=== PATIENT | female | born 1960 | race Caucasian/White ===

== ENCOUNTER 2018-12-12 13:42 | Inpatient (IN) | payer OTHER ==
[~2018-12-12] VITALS: Ht 152.4 cm; Wt 85.8 kg
[~2018-12-12 13:42] MED LIST: LANT3I SC; METF100010 PO; ROCURONIUM 50 MG INJ ONE; SEVOFLURANE 15 MIN ONE; VALS320T2 PO
[2018-12-12] MEDS ORDERED: KETOROLAC 15 MG INJ IV STA (13:58)
[2018-12-12] MEDS ORDERED: ONDANSETRON 4 MG INJ IV STA (13:58)
[2018-12-12] MEDS ORDERED: LACTATED RINGER'S 1,000 ML IV STA (13:58)
[2018-12-12] MEDS ORDERED: ATOR-2 PO (14:37)
[2018-12-12] MEDS ORDERED: LOSA100T15 PO (14:37)
[2018-12-12] MEDS ORDERED: CHOL100062 PO (14:38)
[2018-12-12] MEDS ORDERED: RANI150T5 PO (14:38)
[2018-12-12] MEDS ORDERED: INSU100I33 SC (14:39)
[2018-12-12] MEDS ORDERED: PIPER-TAZO 3.375 GM IV (PMX) 100 ML IVPB ONE (15:00)
--- NOTE | 2018-12-12 15:08 | ERD ---
ER Documentation Chief Complaint Chief Complaint generalized abdominal pain and nausea since last night HPI 58-year-old woman complaining of diffuse periumbilical abdominal pain beginning last night with nausea and fever. She states the pain got worse this morning and she ate a small amount of oatmeal about 5 hours prior to evaluation. She localizes the pain to the right lower quadrant abdomen, denies vomiting or diarrhea, no chest pain or shortness of breath, no URI symptoms, no dysuria ROS All systems reviewed and are negative except as per history of present illness. Medications Home Meds Reported Medications Insulin Glargine,Hum.rec.anlog (Basaglar Kwikpen U-100) 100 Unit/1 Ml Insuln.pen, 70 UNIT SC QHS, EA 12/12/18 Ranitidine Hcl* (Ranitidine Hcl*) 150 Mg Tablet, 150 MG PO Q12, #60 TAB 12/12/18 Cholecalciferol* (Vitamin D3*) 1,000 Unit Tablet, 1000 UNIT PO DAILY, TAB 12/12/18 Losartan Potassium* (Losartan Potassium*) 100 Mg Tablet, 100 MG PO DAILY, TAB 12/12/18 Atorvastatin* (Atorvastatin*) 80 Mg Tablet, 80 MG PO QHS, #30 TAB 12/12/18 Discontinued Reported Medications Metformin Hcl* (Metformin Hcl*) 1,000 Mg Tablet, 1000 MG PO WITH BREAKFAST, #30 TAB 11/14/15 Valsartan* (Diovan*) 320 Mg Tablet, 320 MG PO DAILY, TAB 11/14/15 Insulin Glargine* (Lantus*) 100 Unit/Ml Soln, 50 UNIT SC QHS, #1 VIAL 11/14/15 Allergies Allergies: Coded Allergies: No Known Drug Allergies (Verified Allergy, Unknown, 12/12/18) PMhx/Soc Hypertension, diabetes mellitus History of Surgery: No Anesthesia Reaction: No Hx Neurological Disorder: No Hx Respiratory Disorders: No Hx Cardiac Disorders: Yes (htn, hyperlipidemia) Hx Psychiatric Problems: No Hx Miscellaneous Medical Probl: No Hx Alcohol Use: No Hx Substance Use: No Hx Tobacco Use: No Smoking Status: Never smoker FmHx Family History: No diabetes Physical Exam Vitals Vital Signs Date Temp Pulse Resp B/P (MAP) Pulse Ox O2 O2 Flow FiO2 Time Delivery Rate 12/12/18 100.8 88 19 146/66 99 Room Air 14:15 (92) 12/12/18 100.8 107 25 131/69 99 13:44 (89) Physical Exam Const: No acute distress mild discomfort, febrile Head: Atraumatic Eyes: Normal Conjunctiva ENT: Normal External Ears, Nose and Mouth. Neck: Full range of motion. No meningismus. Resp: Clear to auscultation bilaterally Cardio: Regular rate and rhythm, no murmurs Abd: Positive McBurney's point tenderness to touch with voluntary guarding, no rigidity, no Rovsing sign Skin: No petechiae or rashes, no ecchymosis, no hematomas Back: No midline or flank tenderness Ext: No cyanosis, or edema, calves symmetrical Neur: Awake and alert x3, no focal deficits or facial asymmetry Psych: Normal Mood and Affect Result Diagram: 12/12/18 1406 12/12/18 1406 Results 24 hrs Laboratory Tests Test 12/12/18 14:06 White Blood Count 16.0 10^3/ul Red Blood Count 3.50 10^6/ul Hemoglobin 10.7 g/dl Hematocrit 31.0 % Mean Corpuscular Volume 88.6 fl Mean Corpuscular Hemoglobin 30.6 pg Mean Corpuscular Hemoglobin Concent 34.5 g/dl Red Cell Distribution Width 12.3 % Platelet Count 350 10^3/UL Mean Platelet Volume 8.5 fl Immature Granulocytes % 0.400 % Neutrophils % 86.2 % Lymphocytes % 7.3 % Monocytes % 5.9 % Eosinophils % 0.0 % Basophils % 0.2 % Nucleated Red Blood Cells % 0.0 /100WBC Immature Granulocytes # 0.070 10^3/ul Neutrophils # 13.8 10^3/ul Lymphocytes # 1.2 10^3/ul Monocytes # 1.0 10^3/ul Eosinophils # 0.0 10^3/ul Basophils # 0.0 10^3/ul Nucleated Red Blood Cells # 0.0 10^3/ul Prothrombin Time 12.2 Sec Prothrombin Time Ratio 1.0 INR International Normalized Ratio 0.89 Activated Partial Thromboplast Time 27.5 Sec Urine Color YELLOW Urine Clarity CLOUDY Urine pH 5.0 Urine Specific [place] 1.019 Urine Ketones TRACE mg/dL Urine Nitrite NEGATIVE mg/dL Urine Bilirubin NEGATIVE mg/dL Urine Urobilinogen NEGATIVE mg/dL Urine Leukocyte Esterase NEGATIVE Stephanie/ul Urine Microscopic RBC 1 /HPF Urine Microscopic WBC 3 /HPF Urine Squamous Epithelial Cells FEW /HPF Urine Bacteria FEW /HPF Urine Mucus FEW /HPF Urine Hemoglobin NEGATIVE mg/dL Urine Glucose 1+ mg/dL Urine Total Protein 3+ mg/dl Sodium Level 130 mmol/L Potassium Level 4.3 mmol/L Chloride Level 95 mmol/L Carbon Dioxide Level 23 mmol/L Anion Gap 12 Blood Urea Nitrogen 31 mg/dl Creatinine 1.73 mg/dl Est Glomerular Filtrat Rate mL/min 30 mL/min Glucose Level 174 mg/dl Calcium Level 9.3 mg/dl Total Bilirubin 1.0 mg/dl Direct Bilirubin 0.00 mg/dl Indirect Bilirubin 1.0 mg/dl Aspartate Amino Transf (AST/SGOT) 22 IU/L Alanine Aminotransferase (ALT/SGPT) 23 IU/L Alkaline Phosphatase 124 IU/L Total Protein 7.5 g/dl Albumin 4.0 g/dl Globulin 3.50 g/dl Albumin/Globulin Ratio 1.14 Lipase 26 U/L Current Medications Medications Dose Sig/Brannon Start Time Status Last (Trade) Ordered Route PRN Stop Time Admin Dose Reason Admin Lactated 1,000 ml @ Q1H STAT 12/12/18 DC 12/12/18 Ringer's 1,000 mls/hr IV 13:58 14:43 12/12/18 14:57 Ondansetron 4 mg ONCE STAT 12/12/18 DC 12/12/18 HCl (Zofran IV 13:58 14:43 Inj) 12/12/18 14:00 Ketorolac 15 mg ONCE STAT 12/12/18 DC 12/12/18 Tromethamine IV 13:58 14:43 (Toradol) 12/12/18 14:00 Piperacillin 100 ml @ ONCE ONCE 12/12/18 12/12/18 Sod/ 200 mls/hr IVPB 15:00 14:50 Tazobactam 12/12/18 15:29 Sod Procedures/MDM IV line was established patient was placed on monitoring analyst rhythm strip revealed a sinus rhythm at about 80 bpm with upright P and T waves. Patient was febrile I administered LR 1 L IV, Toradol 15 mg IV, Zofran 4 mg IV. CBC reveals a leukocytosis of 16, electrolytes revealed dehydration with a BUN/creatinine of 31/1.7, liver function test normal, coagulation profile unremarkable, urinalysis negative for infection. CT scan was positive for acute appendicitis, please refer to radiologist dictation for full report. I spoke to general surgeon title one reading teacher regarding the patient's presentation, symptomatology, CT scan findings. He agreed to take the patient to the OR. I do not suspect sepsis I administered Zosyn 3.375 g IV Patient admitted to [facility] Departure Diagnosis: Primary Impression: Acute appendicitis Acute appendicitis type: with localized peritonitis Appendicitis gangrene presence: without gangrene Appendicitis perforation presence: without perforation Appendicitis abscess presence: without abscess Qualified Codes: K35.30 - Acute appendicitis with localized peritonitis, without perforation or gangrene Condition: TERRI Arenas MD December 12, 2018 15:08
--- NOTE | 2018-12-12 15:27 | HP ---
Date/Time of Note Date/Time of Note DATE: 12/12/18 TIME: 15:27 Assessment/Plan VTE Prophylaxis Pharmacological prophylaxis: other Lines/Catheters IV Catheter Type (from Nrs): Saline Lock Assessment/Plan Hospital Course Patient is a female with a past medical history significant for diabetes mellitus, dyslipidemia, hypertension, acid reflux who presents to [facility] for abdominal pain. Patient has been suffering from intermittent abdominal pain for the past 2 days that has been waxing and waning. The pain progressively got worse and is now located primarily in the right lower quadrant. Patient states that she has had nausea however currently the nausea has subsided and her only current complaint aside from the abdominal pain is a mild to moderate headache. Patient denies chest pain, shortness of breath, dizziness, neck pain, diarrhea, constipation, leg pain. Objective Physical exam General: Patient is laying in bed and answers questions appropriately Mentation: Patient is alert and oriented 4, Head: Normocephalic atraumatic Eyes: EOMI, pupils reactive to light Neck: Supple, nontender, midline Respiratory: Clear to auscultation bilaterally Cardiovascular: regular rate, no obvious murmurs Gastrointestinal: Right lower quadrant to palpation, bowel sounds heard. Neurological: Moves all extremities spontaneously Skin: No new skin lesions Assessment and plan Acute appendicitis -Found on CT -IV fluid -N.p.o. -IV antibiotic Sepsis -Secondary to above appendicitis -Blood cultures -Lactic acid -IV fluid -IV antibiotic Diabetes mellitus -Insulin lighting scale 1 house and n.p.o. Dyslipidemia -Continue home meds when able Hypertension -Continue home meds when able, until eating continue with as needed medications Acid reflux -Protonix Disposition -Awaiting general surgeon consultation and likely surgery. Result Diagram: 12/12/18 1406 12/12/18 1406 Results 24hrs Laboratory Tests Test 12/12/18 14:06 White Blood Count 16.0 H Red Blood Count 3.50 L Hemoglobin 10.7 L Hematocrit 31.0 L Mean Corpuscular Volume 88.6 Mean Corpuscular Hemoglobin 30.6 Mean Corpuscular Hemoglobin Concent 34.5 Red Cell Distribution Width 12.3 Platelet Count 350 Mean Platelet Volume 8.5 Immature Granulocytes % 0.400 Neutrophils % 86.2 H Lymphocytes % 7.3 L Monocytes % 5.9 Eosinophils % 0.0 Basophils % 0.2 Nucleated Red Blood Cells % 0.0 Immature Granulocytes # 0.070 H Neutrophils # 13.8 H Lymphocytes # 1.2 Monocytes # 1.0 H Eosinophils # 0.0 Basophils # 0.0 Nucleated Red Blood Cells # 0.0 Prothrombin Time 12.2 Prothrombin Time Ratio 1.0 INR International Normalized Ratio 0.89 Activated Partial Thromboplast Time 27.5 Urine Color YELLOW Urine Clarity CLOUDY A Urine pH 5.0 Urine Specific [place] 1.019 Urine Ketones TRACE A Urine Nitrite NEGATIVE Urine Bilirubin NEGATIVE Urine Urobilinogen NEGATIVE Urine Leukocyte Esterase NEGATIVE Urine Microscopic RBC 1 Urine Microscopic WBC 3 Urine Squamous Epithelial Cells FEW Urine Bacteria FEW A Urine Mucus FEW A Urine Hemoglobin NEGATIVE Urine Glucose 1+ H Urine Total Protein 3+ H Sodium Level 130 L Potassium Level 4.3 Chloride Level 95 L Carbon Dioxide Level 23 Anion Gap 12 Blood Urea Nitrogen 31 H Creatinine 1.73 H Est Glomerular Filtrat Rate mL/min 30 L Glucose Level 174 Calcium Level 9.3 Total Bilirubin 1.0 Direct Bilirubin 0.00 Indirect Bilirubin 1.0 Aspartate Amino Transf (AST/SGOT) 22 Alanine Aminotransferase (ALT/SGPT) 23 Alkaline Phosphatase 124 H Total Protein 7.5 Albumin 4.0 Globulin 3.50 H Albumin/Globulin Ratio 1.14 Lipase 26 HPI/ROS Admit Date/Time Admit Date/Time PMH/Family/Social Past Medical History Medications Current Medications Piperacillin Sod/ Tazobactam Sod 100 ml @ 200 mls/hr ONCE ONCE IVPB Last administered on 12/12/18at 14:50; Admin Dose 200 MLS/HR; Start 12/12/18 at 15:00; Stop 12/12/18 at 15:29 Coded Allergies: No Known Drug Allergies (Verified Allergy, Unknown, 12/12/18) Social History Smoking Status: Never smoker Exam/Review of Systems Vital Signs Vitals Vital Signs Date Temp Pulse Resp B/P (MAP) Pulse Ox O2 O2 Flow FiO2 Time Delivery Rate 12/12/18 100.8 88 19 146/66 99 Room Air 14:15 (92) TERRI SESAY December 12, 2018 15:27
[2018-12-12] MEDS ORDERED: ACETAMINOPHEN 650 MG SUPP PR PRN (15:30)
[2018-12-12] MEDS ORDERED: HYDROCODONE/APAP (5/325) TAB PO PRN (15:30)
[2018-12-12] MEDS ORDERED: hydrALAzine 20 MG INJ IV PRN (15:30)
[2018-12-12] MEDS ORDERED: NACL 0.9% 3 ML SYG IV SCH (15:30)
[2018-12-12] MEDS ORDERED: ACETAMINOPHEN 1000MG/100ML IV 100 ML IVPB PRN (15:30)
--- NOTE | 2018-12-12 15:41 | CONS ---
Assessment/Plan Assessment/Plan Assessment/Plan (Daily) 1. acute kidney injury due to Severe preneal azotemia due to decreased PO intake 2. Acute appendicitis 3. acute abdominal pain 3. H/O HTN 4. H/o HL 5. H/o DM II Plan: IVF D51/2 NS at 100 ml/hr IV abx zosyn for acute appendicitis pain control Kidneys unremarkabel on CT abdomen + pelvis Expecting Cr to improve with IVF hydration THanks for consultation. I will continue to follow up Consultation Date/Type/Reason Admit Date/Time 12/12/18 Date of Consultation: December 12, 2018 Type of Consult NEPHROLOGY Reason for Consultation acute kidney injury, Hyponatremia Requesting Provider: TERRI SESAY Date/Time of Note DATE: 12/12/18 TIME: 15:40 Hx of Present Illness 58 y/o female with a past medical history significant for diabetes mellitus, dyslipidemia, hypertension, acid reflux who presents to [facility] for abdominal pain. Patient has been suffering from intermittent abdominal pain for the past 2 days that has been waxing and waning. pt has not been eating for last two days, On admission BUN/Cr 31/1.73, Na 130. renal has been consulted for Hyponatremia, acute Kidney injury on CKD III Constitutional: poor po Eyes: no complaints ENT: no complaints Respiratory: pleuritic pain, shortness of breath Cardiovascular: no complaints Gastrointestinal: pain, nausea, vomiting Genitourinary: no complaints Musculoskeletal: no complaints Skin: no complaints Neurologic: no complaints Endocrine: no complaints Lymphatic: no complaints Psychological: no complaints Immunologic: no complaints Past Medical History Medical History: diabetes, high cholesterol, hypertension Home Meds Reported Medications Insulin Glargine,Hum.rec.anlog (Basaglar Kwikpen U-100) 100 Unit/1 Ml Insuln.pen, 70 UNIT SC QHS, EA 12/12/18 Ranitidine Hcl* (Ranitidine Hcl*) 150 Mg Tablet, 150 MG PO Q12, #60 TAB 12/12/18 Cholecalciferol* (Vitamin D3*) 1,000 Unit Tablet, 1000 UNIT PO DAILY, TAB 12/12/18 Losartan Potassium* (Losartan Potassium*) 100 Mg Tablet, 100 MG PO DAILY, TAB 12/12/18 Atorvastatin* (Atorvastatin*) 80 Mg Tablet, 80 MG PO QHS, #30 TAB 12/12/18 Discontinued Reported Medications Metformin Hcl* (Metformin Hcl*) 1,000 Mg Tablet, 1000 MG PO WITH BREAKFAST, #30 TAB 11/14/15 Valsartan* (Diovan*) 320 Mg Tablet, 320 MG PO DAILY, TAB 11/14/15 Insulin Glargine* (Lantus*) 100 Unit/Ml Soln, 50 UNIT SC QHS, #1 VIAL 11/14/15 Medications Current Medications Sodium Chloride 1,000 ml @ 100 mls/hr Q10H IV ; Start 12/12/18 at 15:08; Status UNV IV Flush (NS 3 ml) 3 ml PER PROTOCOL IV ; Start 12/12/18 at 15:30; Status UNV Ondansetron HCl (Zofran Inj) 4 mg Q6H PRN IV NAUSEA/VOMITING; Start 12/12/18 at 15:30; Status UNV Acetaminophen/ Hydrocodone Bitart (Berino (5/325)) 1 tab Q6H PRN PO .PAIN 4-6; Start 12/12/18 at 15:30; Status UNV Morphine Sulfate (morphine) 2 mg Q4H PRN IV .PAIN 7-10; Start 12/12/18 at 15:30; Status UNV Pantoprazole (Protonix Iv) 40 mg DAILY@06 IV ; Start 12/13/18 at 06:00; Status UNV Miscellaneous Information (* Miscellaneous Pharmacy Order) Discontinue current oral sulfonylur... ONCE ONCE XX ; Start 12/12/18 at 15:30; Stop 12/12/18 at 15:31; Status UNV Diagnostic Test (Pha) (Accu-Chek) 1 XX ; Start 12/13/18 at 02:00; Status UNV Miscellaneous Information (* Miscellaneous Pharmacy Order) HYPOGLYCEMIA PROTOCOL w... ONCE ONCE XX ; Start 12/12/18 at 15:30; Stop 12/12/18 at 15:31; Status UNV Insulin Aspart (Novolog Insulin Pen) NOVOLOG *MILD* ALGORITHM Q6 SC ; Start 12/12/18 at 18:00; Status UNV Miscellaneous Information (* Miscellaneous Pharmacy Order) Discontinue all previ... ONCE ONCE XX ; Start 12/12/18 at 15:30; Stop 12/12/18 at 15:31; Status UNV Acetaminophen 100 ml @ 400 mls/hr Q6H PRN IVPB fever and pain; Start 12/12/18 at 15:30; Stop 12/13/18 at 15:29; Status UNV Hydralazine HCl (Apresoline) 10 mg Q4H PRN IV sbp >160; Start 12/12/18 at 15:30; Status UNV Allergies: Coded Allergies: No Known Drug Allergies (Verified Allergy, Unknown, 12/12/18) Past Surgical History Past Surgical Hx: no surgical history Family History Significant Family History: no pertinent family hx Social History Alcohol Use: none Smoking Status: Never smoker Drug Use: none Exam/Review of Systems Exam Vitals Vital Signs Date Temp Pulse Resp B/P (MAP) Pulse Ox O2 O2 Flow FiO2 Time Delivery Rate 12/12/18 100.8 88 19 146/66 99 Room Air 14:15 (92) Constitutional: alert Psych: no complaints Head: normocephalic Eyes: nl conjunctiva ENMT: nl external ears & nose Neck: supple, non-tender Respiratory: clear to auscultation, normal air movement, diminished breath sounds Cardiovascular: regular rate and rhythm, nl pulses Gastrointestinal: soft Genitourinary - Female: nl adnexae Musculoskeletal: nl extremities to inspection Extremities: normal pulses Neurological: SECURITY INSPECTOR II-XII intact Results Result Diagram: 12/12/18 1406 12/12/18 1406 Results 24hrs Laboratory Tests Test 12/12/18 14:06 White Blood Count 16.0 H Red Blood Count 3.50 L Hemoglobin 10.7 L Hematocrit 31.0 L Mean Corpuscular Volume 88.6 Mean Corpuscular Hemoglobin 30.6 Mean Corpuscular Hemoglobin Concent 34.5 Red Cell Distribution Width 12.3 Platelet Count 350 Mean Platelet Volume 8.5 Immature Granulocytes % 0.400 Neutrophils % 86.2 H Lymphocytes % 7.3 L Monocytes % 5.9 Eosinophils % 0.0 Basophils % 0.2 Nucleated Red Blood Cells % 0.0 Immature Granulocytes # 0.070 H Neutrophils # 13.8 H Lymphocytes # 1.2 Monocytes # 1.0 H Eosinophils # 0.0 Basophils # 0.0 Nucleated Red Blood Cells # 0.0 Prothrombin Time 12.2 Prothrombin Time Ratio 1.0 INR International Normalized Ratio 0.89 Activated Partial Thromboplast Time 27.5 Urine Color YELLOW Urine Clarity CLOUDY A Urine pH 5.0 Urine Specific [place] 1.019 Urine Ketones TRACE A Urine Nitrite NEGATIVE Urine Bilirubin NEGATIVE Urine Urobilinogen NEGATIVE Urine Leukocyte Esterase NEGATIVE Urine Microscopic RBC 1 Urine Microscopic WBC 3 Urine Squamous Epithelial Cells FEW Urine Bacteria FEW A Urine Mucus FEW A Urine Hemoglobin NEGATIVE Urine Glucose 1+ H Urine Total Protein 3+ H Sodium Level 130 L Potassium Level 4.3 Chloride Level 95 L Carbon Dioxide Level 23 Anion Gap 12 Blood Urea Nitrogen 31 H Creatinine 1.73 H Est Glomerular Filtrat Rate mL/min 30 L Glucose Level 174 Calcium Level 9.3 Total Bilirubin 1.0 Direct Bilirubin 0.00 Indirect Bilirubin 1.0 Aspartate Amino Transf (AST/SGOT) 22 Alanine Aminotransferase (ALT/SGPT) 23 Alkaline Phosphatase 124 H Total Protein 7.5 Albumin 4.0 Globulin 3.50 H Albumin/Globulin Ratio 1.14 Lipase 26 Medications Medication Current Medications Sodium Chloride 1,000 ml @ 100 mls/hr Q10H IV ; Start 12/12/18 at 15:08; Status UNV IV Flush (NS 3 ml) 3 ml PER PROTOCOL IV ; Start 12/12/18 at 15:30; Status UNV Ondansetron HCl (Zofran Inj) 4 mg Q6H PRN IV NAUSEA/VOMITING; Start 12/12/18 at 15:30; Status UNV Acetaminophen/ Hydrocodone Bitart (Berino (5/325)) 1 tab Q6H PRN PO .PAIN 4-6; Start 12/12/18 at 15:30; Status UNV Morphine Sulfate (morphine) 2 mg Q4H PRN IV .PAIN 7-10; Start 12/12/18 at 15:30; Status UNV Pantoprazole (Protonix Iv) 40 mg DAILY@06 IV ; Start 12/13/18 at 06:00; Status UNV Miscellaneous Information (* Miscellaneous Pharmacy Order) Discontinue current oral sulfonylur... ONCE ONCE XX ; Start 12/12/18 at 15:30; Stop 12/12/18 at 15:31; Status UNV Diagnostic Test (Pha) (Accu-Chek) 1 ea XX ; Start 12/13/18 at 02:00; Status UNV Miscellaneous Information (* Miscellaneous Pharmacy Order) HYPOGLYCEMIA PROTOCOL w... ONCE ONCE XX ; Start 5/10/19 at 15:30; Stop 12/12/18 at 15:31; Status UNV Insulin Aspart (Novolog Insulin Pen) NOVOLOG *MILD* ALGORITHM Q6 SC ; Start 12/12/18 at 18:00; Status UNV Miscellaneous Information (* Miscellaneous Pharmacy Order) Discontinue all previ... ONCE ONCE XX ; Start 12/12/18 at 15:30; Stop 12/12/18 at 15:31; Status UNV Acetaminophen 100 ml @ 400 mls/hr Q6H PRN IVPB fever and pain; Start 12/12/18 at 15:30; Stop 12/13/18 at 15:29; Status UNV Hydralazine HCl (Apresoline) 10 mg Q4H PRN IV sbp >160; Start 12/12/18 at 15:30; Status UNV DANE GREEN MD December 12, 2018 15:41
[2018-12-12 16:07] VITALS: Ht 152.4 cm; Wt 85.8 kg
--- NOTE | 2018-12-12 16:49 | CONS ---
Assessment/Plan Assessment/Plan Hospital Course (Demo Recall) 1. Acute appendicitis: CT: subcecal appendix that is distended up to 1.1 cm in diameter, moderate periappendiceal fat stranding without appendicolith, abscess or free air: had lengthy conversation with patient and daughter regarding surgical options. At this point, she has decided on conservative management without surgical intervention -IV abx -close monitoring> if unimproved or worsens may require surgical intervention -pain mgt -ivf -ok for diet 2. Abdominal pain: -pain mgt -as above 3. Leukocytosis: -as above -trend 4. Normocytic normochromic anemia: -monitor -transfuse as needed 5.Hyponatremia: Judicious fluid correction 6. GIL: -Limit nephrotoxic meds -Renally dose meds -Per renal 7. Minimally elevated alkaline phosphatase: CT: Liver, gallbladder and bile ducts unremarkable -Trend 8. Severe obesity BMI: 37 -diet and exercise optimization -encourage weight loss Thank you. Patient seen and examined in collaboration with Dr. Mehrdad Collins. Consultation Date/Type/Reason Admit Date/Time 12/12/18 Date of Consultation: December 12, 2018 Type of Consult Surgical Reason for Consultation Abdominal pain, appendicitis Date/Time of Note DATE: 12/12/18 TIME: 16:40 Hx of Present Illness Alicia Sol is a 58-year-old woman with past medical history of diabetes, dyslipidemia, hypertension, acid reflux disease, obesity who presents to the hospital for complaints of abdominal pain. Abdominal pain initially began in the left lower quadrant and has since migrated to the right lower quadrant. Pain has been present intermittently for the past 2 days but today has significantly worsened. Associated symptoms include nausea without vomiting, fevers and chills. She denies congested cough, chest pain, palpitations, abdominal trauma, vaginal discharge, change in bowel or bladder habits, diarrhea, dysuria, skin changes or rash. Laboratory findings significant for leukocytosis. CT of the abdomen shows sub-cecal appendix that is distended up to 1.1 cm in diameter, moderate periappendiceal fat stranding without appendicolith, abscess or free air. General surgery was asked to evaluate. 12 point review of systems was performed and is negative except as stated in HPI. Past Medical History as above Home Meds Reported Medications Insulin Glargine,Hum.rec.anlog (Basaglar Kwikpen U-100) 100 Unit/1 Ml Insuln.pen, 70 UNIT SC QHS, EA 12/12/18 Ranitidine Hcl* (Ranitidine Hcl*) 150 Mg Tablet, 150 MG PO Q12, #60 TAB 12/12/18 Cholecalciferol* (Vitamin D3*) 1,000 Unit Tablet, 1000 UNIT PO DAILY, TAB 12/12/18 Losartan Potassium* (Losartan Potassium*) 100 Mg Tablet, 100 MG PO DAILY, TAB 12/12/18 Atorvastatin* (Atorvastatin*) 80 Mg Tablet, 80 MG PO QHS, #30 TAB 12/12/18 Discontinued Reported Medications Metformin Hcl* (Metformin Hcl*) 1,000 Mg Tablet, 1000 MG PO WITH BREAKFAST, #30 TAB 11/14/15 Valsartan* (Diovan*) 320 Mg Tablet, 320 MG PO DAILY, TAB 11/14/15 Insulin Glargine* (Lantus*) 100 Unit/Ml Soln, 50 UNIT SC QHS, #1 VIAL 11/14/15 Medications Current Medications Sodium Chloride 1,000 ml @ 100 mls/hr Q10H IV ; Start 12/12/18 at 15:08 IV Flush (NS 3 ml) 3 ml PER PROTOCOL IV ; Start 12/12/18 at 15:30 Ondansetron HCl (Zofran Inj) 4 mg Q6H PRN IV NAUSEA/VOMITING; Start 12/12/18 at 15:30 Acetaminophen/ Hydrocodone Bitart ([place] (5/325)) 1 tab Q6H PRN PO .PAIN 4-6; Start 12/12/18 at 15:30 Morphine Sulfate (morphine) 2 mg Q4H PRN IV .PAIN 7-10; Start 12/12/18 at 15:30 Famotidine (Pepcid Iv) 20 mg DAILY IV ; Start 12/12/18 at 17:00 Acetaminophen 100 ml @ 400 mls/hr Q6H PRN IVPB fever and pain; Start 12/12/18 at 15:30; Stop 12/13/18 at 15:29 Hydralazine HCl (Apresoline) 10 mg Q4H PRN IV sbp >160; Start 12/12/18 at 15:30 Insulin Aspart (Novolog Insulin Pen) (Adult SC Insulin - Mild Algorithm)... Q6 SC ; Start 12/12/18 at 18:00 Miscellaneous Information 1 ea NOTE XX ; Start 12/12/18 at 17:00 Glucose (Glutose) 15 gm Q15M PRN PO DECREASED GLUCOSE; Start 12/12/18 at 17:00 Glucose (Glutose) 22.5 gm Q15M PRN PO DECREASED GLUCOSE; Start 12/12/18 at 17:00 Dextrose (D50w Syringe) 25 ml Q15M PRN IV DECREASED GLUCOSE; Start 12/12/18 at 17:00 Dextrose (D50w Syringe) 50 ml Q15M PRN IV DECREASED GLUCOSE; Start 12/12/18 at 17:00 Glucagon (Glucagen) 1 mg Q15M PRN IM DECREASED GLUCOSE; Start 12/12/18 at 17:00 Glucose (Glutose) 15 gm Q15M PRN BUCCAL DECREASED GLUCOSE; Start 12/12/18 at 17:00 Allergies: Coded Allergies: No Known Drug Allergies (Verified Allergy, Unknown, 12/12/18) Past Surgical History Past Surgical Hx: no surgical history Family History Significant Family History: no pertinent family hx Social History Alcohol Use: none Smoking Status: Never smoker Drug Use: none Exam/Review of Systems Exam Vitals Vital Signs Date Temp Pulse Resp B/P (MAP) Pulse Ox O2 O2 Flow FiO2 Time Delivery Rate 12/12/18 100.8 88 19 146/66 99 Room Air 14:15 (92) Constitutional: alert, oriented Psych: anxiety (min) Eyes: nl conjunctiva, nl lids ENMT: nl external ears & nose, nl lips & teeth, mucosa pink and moist Neck: supple, non-tender; No jvd Respiratory: normal air movement; No congested cough Cardiovascular: regular rate and rhythm; No edema Gastrointestinal: soft, tender (diffuse, most tender RLQ) Genitourinary - Female: nl external genitalia Musculoskeletal: nl extremities to inspection, nl gait and stance Extremities: normal pulses Neurological: nl mental status, nl speech, nl strength Skin: No rash or lesions Lymph: nl lymph nodes Results Result Diagram: 12/12/18 1406 12/12/18 1406 Results 24hrs Laboratory Tests Test 12/12/18 14:06 12/12/18 15:34 White Blood Count 16.0 H Red Blood Count 3.50 L Hemoglobin 10.7 L Hematocrit 31.0 L Mean Corpuscular Volume 88.6 Mean Corpuscular Hemoglobin 30.6 Mean Corpuscular Hemoglobin Concent 34.5 Red Cell Distribution Width 12.3 Platelet Count 350 Mean Platelet Volume 8.5 Immature Granulocytes % 0.400 Neutrophils % 86.2 H Lymphocytes % 7.3 L Monocytes % 5.9 Eosinophils % 0.0 Basophils % 0.2 Nucleated Red Blood Cells % 0.0 Immature Granulocytes # 0.070 H Neutrophils # 13.8 H Lymphocytes # 1.2 Monocytes # 1.0 H Eosinophils # 0.0 Basophils # 0.0 Nucleated Red Blood Cells # 0.0 Prothrombin Time 12.2 Prothrombin Time Ratio 1.0 INR International Normalized Ratio 0.89 Activated Partial Thromboplast Time 27.5 Urine Color YELLOW Urine Clarity CLOUDY A Urine pH 5.0 Urine Specific [place] 1.019 Urine Ketones TRACE A Urine Nitrite NEGATIVE Urine Bilirubin NEGATIVE Urine Urobilinogen NEGATIVE Urine Leukocyte Esterase NEGATIVE Urine Microscopic RBC 1 Urine Microscopic WBC 3 Urine Squamous Epithelial Cells FEW Urine Bacteria FEW A Urine Mucus FEW A Urine Hemoglobin NEGATIVE Urine Glucose 1+ H Urine Total Protein 3+ H Sodium Level 130 L Potassium Level 4.3 Chloride Level 95 L Carbon Dioxide Level 23 Anion Gap 12 Blood Urea Nitrogen 31 H Creatinine 1.73 H Est Glomerular Filtrat Rate mL/min 30 L Glucose Level 174 Calcium Level 9.3 Total Bilirubin 1.0 Direct Bilirubin 0.00 Indirect Bilirubin 1.0 Aspartate Amino Transf (AST/SGOT) 22 Alanine Aminotransferase (ALT/SGPT) 23 Alkaline Phosphatase 124 H Total Protein 7.5 Albumin 4.0 Globulin 3.50 H Albumin/Globulin Ratio 1.14 Lipase 26 Lactic Acid Level 1.1 Medications Medication Current Medications Sodium Chloride 1,000 ml @ 100 mls/hr Q10H IV ; Start 12/12/18 at 15:08 IV Flush (NS 3 ml) 3 ml PER PROTOCOL IV ; Start 12/12/18 at 15:30 Ondansetron HCl (Zofran Inj) 4 mg Q6H PRN IV NAUSEA/VOMITING; Start 12/12/18 at 15:30 Acetaminophen/ Hydrocodone Bitart ([place] (5/325)) 1 tab Q6H PRN PO .PAIN 4-6; Start 12/12/18 at 15:30 Morphine Sulfate (morphine) 2 mg Q4H PRN IV .PAIN 7-10; Start 12/12/18 at 15:30 Famotidine (Pepcid Iv) 20 mg DAILY IV ; Start 12/12/18 at 17:00 Acetaminophen 100 ml @ 400 mls/hr Q6H PRN IVPB fever and pain; Start 12/12/18 at 15:30; Stop 12/13/18 at 15:29 Hydralazine HCl (Apresoline) 10 mg Q4H PRN IV sbp >160; Start 12/12/18 at 15:30 Insulin Aspart (Novolog Insulin Pen) (Adult SC Insulin - Mild Algorithm)... Q6 SC ; Start 12/12/18 at 18:00 Miscellaneous Information 1 ea NOTE XX ; Start 12/12/18 at 17:00 Glucose (Glutose) 15 gm Q15M PRN PO DECREASED GLUCOSE; Start 12/12/18 at 17:00 Glucose (Glutose) 22.5 gm Q15M PRN PO DECREASED GLUCOSE; Start 12/12/18 at 17:00 Dextrose (D50w Syringe) 25 ml Q15M PRN IV DECREASED GLUCOSE; Start 12/12/18 at 17:00 Dextrose (D50w Syringe) 50 ml Q15M PRN IV DECREASED GLUCOSE; Start 12/12/18 at 17:00 Glucagon (Glucagen) 1 mg Q15M PRN IM DECREASED GLUCOSE; Start 12/12/18 at 17:00 Glucose (Glutose) 15 gm Q15M PRN BUCCAL DECREASED GLUCOSE; Start 12/12/18 at 17:00 MATTHEW GALLEGOS NP December 12, 2018 16:49
[2018-12-12 16:50] VITALS: BP 136/75; PULSE 78
[2018-12-12] MEDS ORDERED: GLUCAGON 1 MG INJ IM PRN (17:00)
[2018-12-12] MEDS ORDERED: GLUCOSE GEL 15 GRAM TUBE PO PRN ×2 (17:00)
[2018-12-12] MEDS ORDERED: GLUCOSE GEL 15 GRAM TUBE BUCCAL PRN (17:00)
[2018-12-12] MEDS ORDERED: DEXTROSE 50% 50 ML SYRINGE IV PRN ×2 (17:00)
[2018-12-12] MEDS: SOD CHLORIDE 0.9% 1,000 ML IV SCH (17:00)
[2018-12-12] MEDS: FAMOTIDINE 20 MG INJ IV SCH (17:20)
[2018-12-12] MEDS: Insulin NOVOLOG SS MILD Algorithm (NPO/TPN/ENTERAL FEEDS) SC SCH (17:52)
[2018-12-12] MEDS ORDERED: INSULIN ASPART [NOVOLOG] 3 ML PEN SC SCH (18:00)
[2018-12-12 20:00] VITALS: BP 100/49; PULSE 79; RESP 18
[2018-12-12] MEDS: ONDANSETRON 4 MG INJ IV PRN (21:47)
[2018-12-13] MEDS: morphine 2 MG INJ IV PRN (00:43)
[2018-12-13] MEDS: SOD CHLORIDE 0.9% 1,000 ML IV SCH ×3 (01:08→14:22)
[2018-12-13 02:00] VITALS: BP 130/62; PULSE 80; RESP 18
[2018-12-13] MEDS ORDERED: ACCU-CHEK XX SCH (02:00)
[2018-12-13] MEDS: ONDANSETRON 4 MG INJ IV PRN ×2 (03:25→14:31)
[2018-12-13] MEDS: Insulin NOVOLOG SS MILD Algorithm (NPO/TPN/ENTERAL FEEDS) SC SCH ×4 (05:37→17:05)
[2018-12-13 08:07] VITALS: BP 119/56; PULSE 85; RESP 18
[2018-12-13] MEDS: FAMOTIDINE 20 MG INJ IV SCH (08:57)
[2018-12-13] MEDS: PIPER-TAZO 2.25 GM (PMX) 50 ML IVPB SCH ×3 (10:48→18:07)
--- NOTE | 2018-12-13 12:00 | CONS ---
DATE OF ADMISSION: 12/12/2018 DATE OF CONSULTATION: 12/13/2018 TYPE OF CONSULTATION: Infectious disease. REASON FOR CONSULTATION: Antibiotic management. HISTORY OF PRESENT ILLNESS: Alicia Livingston is a 58-year-old who comes in with generalize d abdominal pain and nausea and is being seen for antibiotic management. The patient complained of d iffuse periumbilical abdominal pain the night prior to admission. She states the pain got worse on t he morning of the . The pain was in the right lower quadrant and was when she presented. PAST PROBLEMS INCLUDE: 1. Hypertension. 2. Diabetes mellitus. 3. Hyperlipidemia. FAMILY HISTORY: Noncontributory. SOCIAL HISTORY: She does not smoke, drink or abuse drugs. ALLERGIES: None to penicillin, sulfa or foods. MEDICATIONS: Per chart. REVIEW OF SYSTEMS: Noncontributory. ANCILLARY LABORATORY DATA: White count of 16,000, H and H of 10.7 and 31, platelet count 350,000. B UN and creatinine 31/1.73, glucose 174. Her examination showed a positive McBurney's point tendernes s to touch, and feeling was that she had appendicitis. She was placed on Zosyn. As noted, her CBC, she had a leukocytosis of 16,000 with 86% neutrophils. She had acute appendicitis with localized per itonitis, without gangrene, without perforation. CT scan of the abdomen and pelvis showed acute appe ndicitis. Chest x-ray: Mild left basilar atelectasis. She was seen by surgery, diagnoses of acute appendicitis was made, close monitoring. If unimproved or worsens, may require surgical intervention . Patient also is on insulin. PHYSICAL EXAMINATION: GENERAL: She is alert, responsive, anxious, in no acute distress. VITAL SIGNS: T-max 100.8. SKIN: Without generalized rash. HEENT: Within normal limits. NECK: Supple. LYMPH NODES: None palpable. CHEST: Decreased breath sounds at the bases. HEART: Without murmur or gallop. ABDOMEN: Soft, diffusely tender mostly in the right lower quadrant. EXTREMITIES: Without cyanosis, clubbing, or edema. RECTAL AND GENITAL: Deferred. NEUROLOGIC: No focal neurological abnormalities. IMPRESSION AND PLAN: The patient has appendicitis. She is I believe a candidate for laparoscopic ch olecystectomy, currently on Zosyn. She was seen by Dr. Collins's nurse practitioner. I feel that s he will probably require surgery, possibly today. Following the surgery, she can be placed on Cipro and Flagyl and be treated after she is stable as an outpatient. Dictated By: CARLY BADILLO MD, JD/NTS Conf#: [id number] DID#: [id number] CC: TERRI SESAY MD;*EndCC*
--- NOTE | 2018-12-13 13:20 | CONS ---
Assessment/Plan Assessment/Plan Assessment/Plan (Daily) 1. acute kidney injury due to Severe preneal azotemia due to decreased PO intake 2. Acute appendicitis 3. acute abdominal pain 3. H/O HTN 4. H/o HL 5. H/o DM II Plan: IVF D51/2 NS at 100 ml/hr, BUN/Cr 29/1.83, Na 131, K normal, IV abx zosyn for acute appendicitis Kidneys unremarkabel on CT abdomen + pelvis Expecting Cr to improve with IVF hydration will follow up Consultation Date/Type/Reason Admit Date/Time December 12, 2018 at 14:45 Initial Consult Date 12/12/18 Type of Consult NEPHROLOGY Requesting Provider: TERRI SESAY Date/Time of Note DATE: 12/13/18 TIME: 13:20 Exam/Review of Systems Exam Vitals Vital Signs Date Temp Pulse Resp B/P (MAP) Pulse Ox O2 O2 Flow FiO2 Time Delivery Rate 12/13/18 99.3 85 18 119/56 97 08:07 (77) 12/12/18 Room Air 16:50 Intake and Output 12/12/18 12/12/18 12/13/18 1515:00 23:00 07:00 IntakeIntake Total 300 ml BalanceBalance 300 ml Exam Constitutional: alert, awake, no acute distress Respiratory: clear to auscultation, normal air movement, diminished breath sounds Cardiovascular: regular rate and rhythm, nl pulses Gastrointestinal: soft Genitourinary - Female: nl adnexae Musculoskeletal: nl extremities to inspection Extremities: normal pulses Neurological: HYDRAULIC ELEVATOR CONSTRUCTOR II-XII intact Results Result Diagram: 12/13/18 0536 12/13/18 0536 Results 24hrs Laboratory Tests Test 12/12/18 14:06 12/12/18 15:34 12/12/18 17:22 12/13/18 00:37 White Blood Count 16.0 H Red Blood Count 3.50 L Hemoglobin 10.7 L Hematocrit 31.0 L Mean Corpuscular 88.6 Volume Mean Corpuscular 30.6 Hemoglobin Mean Corpuscular 34.5 Hemoglobin Concent Red Cell 12.3 Distribution Width Platelet Count 350 Mean Platelet Volume 8.5 Immature 0.400 Granulocytes % Neutrophils % 86.2 H Lymphocytes % 7.3 L Monocytes % 5.9 Eosinophils % 0.0 Basophils % 0.2 Nucleated Red Blood 0.0 Cells % Immature 0.070 H Granulocytes # Neutrophils # 13.8 H Lymphocytes # 1.2 Monocytes # 1.0 H Eosinophils # 0.0 Basophils # 0.0 Nucleated Red Blood 0.0 Cells # Prothrombin Time 12.2 Prothrombin Time 1.0 Ratio INR International 0.89 Normalized Ratio Activated 27.5 Partial Thromboplast Time Urine Color YELLOW Urine Clarity CLOUDY A Urine pH 5.0 Urine Specific 1.019 [place] Urine Ketones TRACE A Urine Nitrite NEGATIVE Urine Bilirubin NEGATIVE Urine Urobilinogen NEGATIVE Urine Leukocyte NEGATIVE Esterase Urine Microscopic 1 RBC Urine Microscopic 3 WBC Urine Squamous FEW Epithelial Cells Urine Bacteria FEW A Urine Mucus FEW A Urine Hemoglobin NEGATIVE Urine Glucose 1+ H Urine Total Protein 3+ H Sodium Level 130 L Potassium Level 4.3 Chloride Level 95 L Carbon Dioxide Level 23 Anion Gap 12 Blood Urea Nitrogen 31 H Creatinine 1.73 H Est Glomerular 30 L Filtrat Rate mL/min Glucose Level 174 Calcium Level 9.3 Total Bilirubin 1.0 Direct Bilirubin 0.00 Indirect Bilirubin 1.0 Aspartate Amino 22 Transf (AST/SGOT) Alanine 23 Aminotransferase (AL T/SGPT) Alkaline Phosphatase 124 H Total Protein 7.5 Albumin 4.0 Globulin 3.50 H Albumin/Globulin 1.14 Ratio Lipase 26 Lactic Acid Level 1.1 Bedside Glucose 176 97 Test 12/13/18 05:35 12/13/18 05:36 12/13/18 11:44 Bedside Glucose 103 84 White Blood Count 18.3 H Red Blood Count 3.09 L Hemoglobin 9.5 L Hematocrit 27.9 L Mean Corpuscular 90.3 Volume Mean Corpuscular 30.7 Hemoglobin Mean Corpuscular 34.1 Hemoglobin Concent Red Cell 12.6 Distribution Width Platelet Count 291 Mean Platelet Volume 8.9 Immature 1.000 H Granulocytes % Neutrophils % 87.5 H Lymphocytes % 5.6 L Monocytes % 5.7 Eosinophils % 0.0 Basophils % 0.2 Nucleated Red Blood 0.0 Cells % Immature 0.190 H Granulocytes # Neutrophils # 16.0 H Lymphocytes # 1.0 Monocytes # 1.1 H Eosinophils # 0.0 Basophils # 0.0 Nucleated Red Blood 0.0 Cells # Sodium Level 131 L Potassium Level 4.7 Chloride Level 102 Carbon Dioxide Level 22 Anion Gap 7 Blood Urea Nitrogen 29 H Creatinine 1.83 H Est Glomerular 28 L Filtrat Rate mL/min Glucose Level 94 # Hemoglobin A1c 8.9 H Calcium Level 8.7 Magnesium Level 1.9 Total Bilirubin 0.8 Direct Bilirubin 0.00 Indirect Bilirubin 0.8 Aspartate Amino 18 Transf (AST/SGOT) Alanine 21 Aminotransferase (AL T/SGPT) Alkaline Phosphatase 76 Total Protein 5.5 #L Albumin 2.8 #L Globulin 2.70 Albumin/Globulin 1.03 Ratio Triglycerides Level 123 Cholesterol Level 182 LDL Cholesterol, 112 Calculated HDL Cholesterol 45 Cholesterol/HDL 4.0 Ratio Thyroid Stimulating 1.340 Hormone (TSH) Medications Medication Current Medications Sodium Chloride 1,000 ml @ 100 mls/hr Q10H IV Last administered on 12/13/18 03:25; Admin Dose 100 MLS/HR; Start 12/12/18 at 15:08 IV Flush (NS 3 ml) 3 ml PER PROTOCOL IV ; Start 12/12/18 at 15:30 Ondansetron HCl (Zofran Inj) 4 mg Q6H PRN IV NAUSEA/VOMITING Last administered on 12/13/18 03:25; Admin Dose 4 MG; Start 12/12/18 at 15:30 Acetaminophen/ Hydrocodone Bitart ([place] (5/325)) 1 tab Q6H PRN PO .PAIN 4-6 Last administered on 12/12/18at 21:47; Admin Dose 1 TAB; Start 12/12/18 at 15:30 Morphine Sulfate (morphine) 2 mg Q4H PRN IV .PAIN 7-10 Last administered on 12/13/18at 00:43; Admin Dose 2 MG; Start 12/12/18 at 15:30 Famotidine (Pepcid Iv) 20 mg DAILY IV Last administered on 12/13/18at 08:57; Admin Dose 20 MG; Start 12/12/18 at 17:00 Acetaminophen 100 ml @ 400 mls/hr Q6H PRN IVPB fever and pain; Start 12/12/18 at 15:30; Stop 12/13/18 at 15:29 Hydralazine HCl (Apresoline) 10 mg Q4H PRN IV sbp >160; Start 12/12/18 at 15:30 Insulin Aspart (Novolog Insulin Pen) (Adult SC Insulin - Mild Algorithm)... Q6 SC ; Start 12/12/18 at 18:00 Miscellaneous Information 1 ea NOTE XX ; Start 12/12/18 at 17:00 Glucose (Glutose) 15 gm Q15M PRN PO DECREASED GLUCOSE; Start 12/12/18 at 17:00 Glucose (Glutose) 22.5 gm Q15M PRN PO DECREASED GLUCOSE; Start 12/12/18 at 17:00 Dextrose (D50w Syringe) 25 ml Q15M PRN IV DECREASED GLUCOSE; Start 12/12/18 at 17:00 Dextrose (D50w Syringe) 50 ml Q15M PRN IV DECREASED GLUCOSE; Start 12/12/18 at 17:00 Glucagon (Glucagen) 1 mg Q15M PRN IM DECREASED GLUCOSE; Start 12/12/18 at 17:00 Glucose (Glutose) 15 gm Q15M PRN BUCCAL DECREASED GLUCOSE; Start 12/12/18 at 17:00 Piperacillin Sod/ Tazobactam Sod 50 ml @ 200 mls/hr Q6 IVPB Last administered on 12/13/18at 10:48; Admin Dose 200 MLS/HR; Start 12/13/18 at 10:00 DANE GREEN MD December 13, 2018 13:20
--- NOTE | 2018-12-13 14:44 | PN ---
Date/Time of Note Date/Time of Note DATE: 12/13/18 TIME: 14:43 Objective Vitals Vital Signs Date Temp Pulse Resp B/P (MAP) Pulse Ox O2 O2 Flow FiO2 Time Delivery Rate 12/13/18 99.3 85 18 119/56 97 08:07 (77) 12/12/18 Room Air 16:50 Intake and Output 12/12/18 12/12/18 12/13/18 1414:59 22:59 06:59 IntakeIntake Total 300 ml BalanceBalance 300 ml Results Result Diagram: 12/13/18 0536 12/13/18 0536 Medications Medications Current Medications Sodium Chloride 1,000 ml @ 100 mls/hr Q10H IV Last administered on 12/13/18at 14:22; Admin Dose 100 MLS/HR; Start 12/12/18 at 15:08 IV Flush (NS 3 ml) 3 ml PER PROTOCOL IV ; Start 12/12/18 at 15:30 Ondansetron HCl (Zofran Inj) 4 mg Q6H PRN IV NAUSEA/VOMITING Last administered on 12/13/18at 14:31; Admin Dose 4 MG; Start 12/12/18 at 15:30 Acetaminophen/ Hydrocodone Bitart ([place] (5/325)) 1 tab Q6H PRN PO .PAIN 4-6 Last administered on 12/12/18at 21:47; Admin Dose 1 TAB; Start 12/12/18 at 15:30 Morphine Sulfate (morphine) 2 mg Q4H PRN IV .PAIN 7-10 Last administered on 12/13/18at 00:43; Admin Dose 2 MG; Start 12/12/18 at 15:30 Famotidine (Pepcid Iv) 20 mg DAILY IV Last administered on 12/13/18at 08:57; Admin Dose 20 MG; Start 12/12/18 at 17:00 Acetaminophen 100 ml @ 400 mls/hr Q6H PRN IVPB fever and pain; Start 12/12/18 at 15:30; Stop 12/13/18 at 15:29 Hydralazine HCl (Apresoline) 10 mg Q4H PRN IV sbp >160; Start 12/12/18 at 15:30 Insulin Aspart (Novolog Insulin Pen) (Adult SC Insulin - Mild Algorithm)... Q6 SC ; Start 12/12/18 at 18:00 Miscellaneous Information 1 ea NOTE XX ; Start 12/12/18 at 17:00 Glucose (Glutose) 15 gm Q15M PRN PO DECREASED GLUCOSE; Start 12/12/18 at 17:00 Glucose (Glutose) 22.5 gm Q15M PRN PO DECREASED GLUCOSE; Start 12/12/18 at 17:00 Dextrose (D50w Syringe) 25 ml Q15M PRN IV DECREASED GLUCOSE; Start 12/12/18 at 17:00 Dextrose (D50w Syringe) 50 ml Q15M PRN IV DECREASED GLUCOSE; Start 12/12/18 at 17:00 Glucagon (Glucagen) 1 mg Q15M PRN IM DECREASED GLUCOSE; Start 12/12/18 at 17:00 Glucose (Glutose) 15 gm Q15M PRN BUCCAL DECREASED GLUCOSE; Start 12/12/18 at 17:00 Piperacillin Sod/ Tazobactam Sod 50 ml @ 200 mls/hr Q6 IVPB Last administered on 12/13/18at 14:19; Admin Dose 200 MLS/HR; Start 12/13/18 at 10:00 VTE Prophylaxis Risk score (from Ns)>0 risk: 4 SCD applied (from Ns): Yes Lines/Catheters IV Catheter Type: Tavares in Place: No Assessment/Plan Hospital Course Subjective Patient's abdominal pain has improved since yesterday, complaining of IV site pain Objective Physical exam General: Patient is laying in bed and answers questions appropriately Mentation: Patient is alert and oriented 4, Head: Normocephalic atraumatic Eyes: EOMI, pupils reactive to light Neck: Supple, nontender, midline Respiratory: Clear to auscultation bilaterally Cardiovascular: regular rate, no obvious murmurs Gastrointestinal: Right lower quadrant to palpation, bowel sounds heard. Neurological: Moves all extremities spontaneously Skin: No new skin lesions Assessment and plan Acute appendicitis -Found on CT -IV fluid -N.p.o. -IV antibiotic -It was decided between the surgeon and the patient to go with conservative measures for now, continue IV fluid and IV antibiotic Sepsis -Secondary to above appendicitis -Blood cultures -Lactic acid -IV fluid -IV antibiotic Diabetes mellitus -Insulin lighting scale 1 house and n.p.o. Dyslipidemia -Continue home meds when able Hypertension -Continue home meds when able, until eating continue with as needed medications Acid reflux -Protonix Disposition -Infectious disease consulted, general surgery recommendations appreciated, will continue conservative measures for now.. TERRI SESAY December 13, 2018 14:44
[2018-12-13 14:48] VITALS: BP 132/62; PULSE 95; RESP 18
[2018-12-13] MEDS: DEXTROSE 5%-0.45% NACL 1,000 ML IV SCH (18:07)
--- NOTE | 2018-12-13 20:09 | PN ---
Date/Time of Note Date/Time of Note DATE: 12/13/18 TIME: 20:08 Assessment/Plan Lines/Catheters IV Catheter Type (from [facility]): Peripheral IV Tavares in Place (from [facility]): No Assessment/Plan Chief Complaint/Hosp Course 1. Acute appendicitis: CT: subcecal appendix that is distended up to 1.1 cm in diameter, moderate periappendiceal fat stranding without appendicolith, abscess or free air: had lengthy conversation with patient and daughter regarding surgical options. At this point, she has decided on conservative management without surgical intervention still despite the fever and leukocytosis. However abx just started today -IV abx -close monitoring> if unimproved or worsens may require surgical intervention -pain mgt -ivf -ok for diet 2. Abdominal pain: -pain mgt -as above 3. Leukocytosis: -as above -trend 4. Normocytic normochromic anemia: -monitor -transfuse as needed 5.Hyponatremia: Judicious fluid correction 6. GIL: -Limit nephrotoxic meds -Renally dose meds -Per renal 7. Minimally elevated alkaline phosphatase: CT: Liver, gallbladder and bile ducts unremarkable -Trend 8. Severe obesity BMI: 37 -diet and exercise optimization -encourage weight loss 9. Umbilical and inguinal hernias -eventual repair Thank you Subjective 24 Hr Interval Summary Fever. No chills. Worsening leukocytosis. Abx just started today. Abdominal pain improved. No nausea vomiting. No cough. No seizure. No blood per mouth or rectum. No dysuria. No headache, visual or neurologic changes. No chest pain or shortness of breath. Patient does not want surgery. Exam/Review of Systems Vital Signs Vitals Vital Signs Date Temp Pulse Resp B/P (MAP) Pulse Ox O2 O2 Flow FiO2 Time Delivery Rate 12/14/18 99.9 88 18 127/61 99 08:03 (83) 12/12/18 Room Air 16:50 Intake and Output 12/13/18 12/13/18 12/14/18 1515:00 23:00 07:00 IntakeIntake Total 800 ml 650 ml 50 ml BalanceBalance 800 ml 650 ml 50 ml Exam Free Text/Dictation Constitutional: alert, oriented Psych: anxiety (min) Eyes: nl conjunctiva, nl lids ENMT: nl external ears & nose, nl lips & teeth, mucosa pink and moist Neck: supple, non-tender; No jvd Respiratory: normal air movement; No congested cough Cardiovascular: regular rate and rhythm; No edema Gastrointestinal: soft, tender (diffuse, most tender RLQ) Genitourinary - Female: nl external genitalia Musculoskeletal: nl extremities to inspection, nl gait and stance Extremities: normal pulses Neurological: nl mental status, nl speech, nl strength Skin: No rash or lesions Lymph: nl lymph nodes Results Result Diagram: 12/14/18 0547 12/14/18 0547 BRI SALCEDO MD December 13, 2018 20:09
[2018-12-13 20:20] VITALS: BP 130/60; PULSE 85; RESP 18
[2018-12-13] MEDS ORDERED: ACETAMINOPHEN 325 MG TAB PO PRN (21:00)
[2018-12-14] MEDS: PIPER-TAZO 2.25 GM (PMX) 50 ML IVPB SCH ×4 (00:47→17:30)
[2018-12-14] MEDS: Insulin NOVOLOG SS MILD Algorithm (NPO/TPN/ENTERAL FEEDS) SC SCH (00:54)
[2018-12-14] MEDS: morphine 2 MG INJ IV PRN (02:13)
[2018-12-14 02:20] VITALS: BP 124/60; PULSE 83; RESP 18
[2018-12-14] MEDS: DEXTROSE 5%-0.45% NACL 1,000 ML IV SCH ×3 (04:00→17:35)
[2018-12-14] MEDS: INSULIN ASPART [NOVOLOG] 3 ML PEN SC SCH ×5 (05:22→20:58)
[2018-12-14 08:03] VITALS: BP 127/61; PULSE 88; RESP 18
--- NOTE | 2018-12-14 08:09 | CONS ---
Assessment/Plan Assessment/Plan Assessment/Plan (Daily) 1. acute kidney injury due to Severe preneal azotemia due to decreased PO intake 2. Acute appendicitis 3. acute abdominal pain 3. H/O HTN 4. H/o HL 5. H/o DM II Plan: IVF D51/2 NS at 100 ml/hr, BUN/Cr 24/2.05, Na 133, K normal, IV abx zosyn 2.25 gram IV Q 6 hr for acute appendicitis Kidneys unremarkabel on CT abdomen + pelvis Expecting Cr to improve with IVF hydration will follow up Consultation Date/Type/Reason Admit Date/Time December 12, 2018 at 14:45 Initial Consult Date 12/12/18 Type of Consult NEPHROLOGY Requesting Provider: TERRI SESAY Date/Time of Note DATE: 12/14/18 TIME: 08:09 Exam/Review of Systems Exam Vitals Vital Signs Date Temp Pulse Resp B/P (MAP) Pulse Ox O2 O2 Flow FiO2 Time Delivery Rate 12/14/18 99.9 88 18 127/61 99 08:03 (83) 12/12/18 Room Air 16:50 Intake and Output 12/13/18 12/13/18 12/14/18 1515:00 23:00 07:00 IntakeIntake Total 800 ml 650 ml 50 ml BalanceBalance 800 ml 650 ml 50 ml Exam Constitutional: alert, awake, no acute distress Respiratory: clear to auscultation, normal air movement, diminished breath sounds Cardiovascular: regular rate and rhythm, nl pulses Gastrointestinal: soft Genitourinary - Female: nl adnexae Musculoskeletal: nl extremities to inspection Extremities: normal pulses Neurological: MANAGER TITLE II-XII intact Results Result Diagram: 12/14/18 0547 12/14/18 0547 Results 24hrs Laboratory Tests Test 12/13/18 11:44 12/13/18 17:04 12/14/18 00:44 12/14/18 05:18 Bedside Glucose 84 78 183 185 Test 12/14/18 05:47 White Blood Count 17.4 H Red Blood Count 2.99 L Hemoglobin 9.2 L Hematocrit 27.8 L Mean Corpuscular 93.0 Volume Mean Corpuscular 30.8 Hemoglobin Mean Corpuscular 33.1 Hemoglobin Concent Red Cell 12.7 Distribution Width Platelet Count 268 Mean Platelet Volume 8.7 Immature 1.200 H Granulocytes % Neutrophils % 87.6 H Lymphocytes % 7.0 L Monocytes % 3.9 Eosinophils % 0.1 Basophils % 0.2 Nucleated Red Blood 0.0 Cells % Immature 0.200 H Granulocytes # Neutrophils # 15.2 H Lymphocytes # 1.2 Monocytes # 0.7 Eosinophils # 0.0 Basophils # 0.0 Nucleated Red Blood 0.0 Cells # Sodium Level 133 L Potassium Level 4.0 Chloride Level 103 Carbon Dioxide Level 23 Anion Gap 7 Blood Urea Nitrogen 24 H Creatinine 2.05 H Est Glomerular 25 L Filtrat Rate mL/min Glucose Level 184 Calcium Level 8.5 Phosphorus Level 3.6 Magnesium Level 2.1 Medications Medication Current Medications IV Flush (NS 3 ml) 3 ml PER PROTOCOL IV ; Start 12/12/18 at 15:30 Ondansetron HCl (Zofran Inj) 4 mg Q6H PRN IV NAUSEA/VOMITING Last administered on 12/13/18at 14:31; Admin Dose 4 MG; Start 12/12/18 at 15:30 Acetaminophen/ Hydrocodone Bitart ([place] (5/325)) 1 tab Q6H PRN PO .PAIN 4-6 Last administered on 12/12/18at 21:47; Admin Dose 1 TAB; Start 12/12/18 at 15:30 Morphine Sulfate (morphine) 2 mg Q4H PRN IV .PAIN 7-10 Last administered on 12/14/18at 02:13; Admin Dose 2 MG; Start 12/12/18 at 15:30 Famotidine (Pepcid Iv) 20 mg DAILY IV Last administered on 12/13/18at 08:57; Admin Dose 20 MG; Start 12/12/18 at 17:00 Hydralazine HCl (Apresoline) 10 mg Q4H PRN IV sbp >160; Start 12/12/18 at 15:30 Miscellaneous Information 1 ea NOTE XX ; Start 12/12/18 at 17:00 Glucose (Glutose) 15 gm Q15M PRN PO DECREASED GLUCOSE; Start 12/12/18 at 17:00 Glucose (Glutose) 22.5 gm Q15M PRN PO DECREASED GLUCOSE; Start 12/12/18 at 17:00 Dextrose (D50w Syringe) 25 ml Q15M PRN IV DECREASED GLUCOSE; Start 12/12/18 at 17:00 Dextrose (D50w Syringe) 50 ml Q15M PRN IV DECREASED GLUCOSE; Start 12/12/18 at 17:00 Glucagon (Glucagen) 1 mg Q15M PRN IM DECREASED GLUCOSE; Start 12/12/18 at 17:00 Glucose (Glutose) 15 gm Q15M PRN BUCCAL DECREASED GLUCOSE; Start 12/12/18 at 17:00 Piperacillin Sod/ Tazobactam Sod 50 ml @ 200 mls/hr Q6 IVPB Last administered on 12/14/18at 05:48; Admin Dose 200 MLS/HR; Start 12/13/18 at 10:00 Dextrose/Sodium Chloride 1,000 ml @ 100 mls/hr Q10H IV Last administered on 12/14/18at 07:48; Admin Dose 100 MLS/HR; Start 12/13/18 at 18:00 Acetaminophen (Tylenol Tab) 650 mg Q6H PRN PO MILD PAIN(1-3)OR ELEVATED TEMP Last administered on 12/13/18at 21:54; Admin Dose 650 MG; Start 12/13/18 at 21:00 Insulin Aspart (Novolog Insulin Pen) (Adult SC Insulin - Mild Algorithm)... Q4 SC Last administered on 12/14/18at 05:22; Admin Dose 2 UNIT; Start 12/14/18 at 05:00 DANE GREEN MD December 14, 2018 08:09
[2018-12-14] MEDS: FAMOTIDINE 20 MG INJ IV SCH (09:16)
[2018-12-14] MEDS ORDERED: PANTOPRAZOLE (EC) 40 MG TAB PO ONE ×2 (11:30→11:34)
--- NOTE | 2018-12-14 12:26 | PN ---
Date/Time of Note Date/Time of Note DATE: 12/14/18 TIME: 12:25 Objective Vitals Vital Signs Date Temp Pulse Resp B/P (MAP) Pulse Ox O2 O2 Flow FiO2 Time Delivery Rate 12/14/18 99.9 88 18 127/61 99 08:03 (83) 12/12/18 Room Air 16:50 Intake and Output 12/13/18 12/13/18 12/14/18 1515:00 23:00 07:00 IntakeIntake Total 800 ml 650 ml 50 ml BalanceBalance 800 ml 650 ml 50 ml Results Result Diagram: 12/14/18 0547 12/14/1847 Medications Medications Current Medications IV Flush (NS 3 ml) 3 ml PER PROTOCOL IV ; Start 12/12/18 at 15:30 Ondansetron HCl (Zofran Inj) 4 mg Q6H PRN IV NAUSEA/VOMITING Last administered on 12/13/18at 14:31; Admin Dose 4 MG; Start 12/12/18 at 15:30 Acetaminophen/ Hydrocodone Bitart ([place] (5/325)) 1 tab Q6H PRN PO .PAIN 4-6 Last administered on 12/12/18at 21:47; Admin Dose 1 TAB; Start 12/12/18 at 15:30 Morphine Sulfate (morphine) 2 mg Q4H PRN IV .PAIN 7-10 Last administered on 12/14/18at 02:13; Admin Dose 2 MG; Start 12/12/18 at 15:30 Hydralazine HCl (Apresoline) 10 mg Q4H PRN IV sbp >160; Start 12/12/18 at 15:30 Miscellaneous Information 1 ea NOTE XX ; Start 12/12/18 at 17:00 Glucose (Glutose) 15 gm Q15M PRN PO DECREASED GLUCOSE; Start 12/12/18 at 17:00 Glucose (Glutose) 22.5 gm Q15M PRN PO DECREASED GLUCOSE; Start 12/12/18 at 17:00 Dextrose (D50w Syringe) 25 ml Q15M PRN IV DECREASED GLUCOSE; Start 12/12/18 at 17:00 Dextrose (D50w Syringe) 50 ml Q15M PRN IV DECREASED GLUCOSE; Start 12/12/18 at 17:00 Glucagon (Glucagen) 1 mg Q15M PRN IM DECREASED GLUCOSE; Start 12/12/18 at 17:00 Glucose (Glutose) 15 gm Q15M PRN BUCCAL DECREASED GLUCOSE; Start 12/12/18 at 17:00 Piperacillin Sod/ Tazobactam Sod 50 ml @ 200 mls/hr Q6 IVPB Last administered on 12/14/18at 11:53; Admin Dose 200 MLS/HR; Start 12/13/18 at 10:00 Dextrose/Sodium Chloride 1,000 ml @ 100 mls/hr Q10H IV Last administered on 12/14/18at 07:48; Admin Dose 100 MLS/HR; Start 12/13/18 at 18:00 Acetaminophen (Tylenol Tab) 650 mg Q6H PRN PO MILD PAIN(1-3)OR ELEVATED TEMP Last administered on 12/13/18at 21:54; Admin Dose 650 MG; Start 12/13/18 at 21:00 Pantoprazole (Protonix Tab) 40 mg DAILY@06 PO ; Start 12/15/18 at 06:00 Insulin Aspart (Novolog Insulin Pen) (Adult SC Insulin - Mild Algorithm)... AC MEALS AND BEDTIME SC Last administered on 12/14/18at 12:14; Admin Dose 2 UNIT; Start 12/14/18 at 17:35 VTE Prophylaxis Risk score (from Nsg)>0 risk: 4 SCD applied (from Nsg): Yes Lines/Catheters IV Catheter Type: Tavares in Place: No Assessment/Plan Hospital Course Subjective Minimal to no abdominal pain, did complain of acid reflux however, some epigastric discomfort overnight Objective Physical exam General: Patient is laying in bed and answers questions appropriately Mentation: Patient is alert and oriented 4, Head: Normocephalic atraumatic Eyes: EOMI, pupils reactive to light Neck: Supple, nontender, midline Respiratory: Clear to auscultation bilaterally Cardiovascular: regular rate, no obvious murmurs Gastrointestinal: Nontender palpation, bowel sounds heard. Neurological: Moves all extremities spontaneously Skin: No new skin lesions Assessment and plan Acute appendicitis -Found on CT -IV fluid -Starting clears -IV antibiotic -It was decided between the surgeon and the patient to go with conservative measures for now, continue IV fluid and IV antibiotic Sepsis -Secondary to above appendicitis -Blood cultures -Lactic acid -IV fluid -IV antibiotic Diabetes mellitus -Insulin lighting scale while in-house Dyslipidemia -Continue home meds when able Hypertension -Continue home meds when able, until eating continue with as needed medications Acid reflux -Protonix Disposition -Infectious disease consulted, general surgery recommendations appreciated, will continue conservative measures for now.. Starting clear diet TERRI SESAY December 14, 2018 12:26
[2018-12-14 14:46] VITALS: BP 125/60; PULSE 87; RESP 16
--- NOTE | 2018-12-14 15:51 | CONS ---
Assessment/Plan Assessment/Plan Hospital Course (Demo Recall) ID PROGRESS NOTE CURRENT ABX: DAY #2=> Zosyn 24H INTERVAL SUMMARY * Awake, alert, oriented, calm, good historian, no fevers, VSS, NAD, watching TV w/spouse * Reporting "Poquito dolor" ABD -- sxs are currently mild -- on ABX for appendicitis conservative Tx MICRO/OTHER * 12/12/18 BCx (-) PHYSICAL EXAMINATION: GENERAL: VSS, NAD, OVERWEIGHT HEENT: AT, NC, anicteric, NECK: Supple, CHEST: Equal chest rise bilaterally without dyspnea on observation HEART: Pulse RRR ABDOMEN: soft - obese, ND EXTREMITIES: Warm, dry SKIN: No rash, no diaphoresis ID ASSESSMENT 58 yo F admit with: 1. Acute appendicitis: * CT: subcecal appendix that is distended up to 1.1 cm in diameter, moderate periappendiceal fat stranding without appendicolith, abscess or free air: had lengthy conversation with patient and daughter regarding surgical options. At this point, she has decided on conservative management without surgical int ervention still despite the fever and leukocytosis. However abx just started today 2. Abdominal pain: IMPROVED 3. SIRS w/Leukocytosis: 4. Normocytic normochromic anemia: 5.Hyponatremia: 6. GIL: 7. Severe obesity BMI: 37 8. Umbilical and inguinal hernias ABX ALLERGIES: KNDA INVASIVES: PIV CURRENT ABX: DAY # =Zosyn ID RECOMMENDATIONS/PLAN: 1. Continue Zosyn -- ABD pain much improved . Consultation Date/Type/Reason Admit Date/Time December 12, 2018 at 14:45 Initial Consult Date 12/12/18 Requesting Provider: TERRI SESAY Date/Time of Note DATE: 12/14/18 TIME: 15:46 Exam/Review of Systems Exam Vitals Vital Signs Date Temp Pulse Resp B/P (MAP) Pulse Ox O2 O2 Flow FiO2 Time Delivery Rate 12/14/18 99.3 87 16 125/60 98 14:46 (81) 12/12/18 Room Air 16:50 Intake and Output 12/13/18 12/13/18 12/14/18 1515:00 23:00 07:00 IntakeIntake Total 800 ml 650 ml 50 ml BalanceBalance 800 ml 650 ml 50 ml Results Result Diagram: 12/14/18 0547 12/14/18 0547 Results 24hrs Laboratory Tests Test 12/13/18 17:04 12/14/18 00:44 12/14/18 05:18 12/14/18 05:47 Bedside Glucose 78 183 185 White Blood Count 17.4 H Red Blood Count 2.99 L Hemoglobin 9.2 L Hematocrit 27.8 L Mean Corpuscular 93.0 Volume Mean Corpuscular 30.8 Hemoglobin Mean Corpuscular 33.1 Hemoglobin Concent Red Cell 12.7 Distribution Width Platelet Count 268 Mean Platelet Volume 8.7 Immature 1.200 H Granulocytes % Neutrophils % 87.6 H Lymphocytes % 7.0 L Monocytes % 3.9 Eosinophils % 0.1 Basophils % 0.2 Nucleated Red Blood 0.0 Cells % Immature 0.200 H Granulocytes # Neutrophils # 15.2 H Lymphocytes # 1.2 Monocytes # 0.7 Eosinophils # 0.0 Basophils # 0.0 Nucleated Red Blood 0.0 Cells # Sodium Level 133 L Potassium Level 4.0 Chloride Level 103 Carbon Dioxide Level 23 Anion Gap 7 Blood Urea Nitrogen 24 H Creatinine 2.05 H Est Glomerular 25 L Filtrat Rate mL/min Glucose Level 184 Calcium Level 8.5 Phosphorus Level 3.6 Magnesium Level 2.1 Test 12/14/18 09:19 12/14/18 11:57 Bedside Glucose 202 213 Medications Medication Current Medications IV Flush (NS 3 ml) 3 ml PER PROTOCOL IV ; Start 12/12/18 at 15:30 Ondansetron HCl (Zofran Inj) 4 mg Q6H PRN IV NAUSEA/VOMITING Last administered on 12/13/18at 14:31; Admin Dose 4 MG; Start 12/12/18 at 15:30 Acetaminophen/ Hydrocodone Bitart ([place] (5/325)) 1 tab Q6H PRN PO .PAIN 4-6 Last administered on 12/12/18at 21:47; Admin Dose 1 TAB; Start 12/12/18 at 15:30 Morphine Sulfate (morphine) 2 mg Q4H PRN IV .PAIN 7-10 Last administered on 12/14/18at 02:13; Admin Dose 2 MG; Start 12/12/18 at 15:30 Hydralazine HCl (Apresoline) 10 mg Q4H PRN IV sbp >160; Start 12/12/18 at 15:30 Miscellaneous Information 1 ea NOTE XX ; Start 12/12/18 at 17:00 Glucose (Glutose) 15 gm Q15M PRN PO DECREASED GLUCOSE; Start 12/12/18 at 17:00 Glucose (Glutose) 22.5 gm Q15M PRN PO DECREASED GLUCOSE; Start 12/12/18 at 17:00 Dextrose (D50w Syringe) 25 ml Q15M PRN IV DECREASED GLUCOSE; Start 12/12/18 at 17:00 Dextrose (D50w Syringe) 50 ml Q15M PRN IV DECREASED GLUCOSE; Start 12/12/18 at 17:00 Glucagon (Glucagen) 1 mg Q15M PRN IM DECREASED GLUCOSE; Start 12/12/18 at 17:00 Glucose (Glutose) 15 gm Q15M PRN BUCCAL DECREASED GLUCOSE; Start 12/12/18 at 17:00 Piperacillin Sod/ Tazobactam Sod 50 ml @ 200 mls/hr Q6 IVPB Last administered on 12/14/18at 11:53; Admin Dose 200 MLS/HR; Start 12/13/18 at 10:00 Dextrose/Sodium Chloride 1,000 ml @ 100 mls/hr Q10H IV Last administered on 12/14/18at 07:48; Admin Dose 100 MLS/HR; Start 12/13/18 at 18:00 Pantoprazole (Protonix Tab) 40 mg DAILY@06 PO ; Start 12/15/18 at 06:00 Insulin Aspart (Novolog Insulin Pen) (Adult SC Insulin - Mild Algorithm)... AC MEALS AND BEDTIME SC Last administered on 12/14/18at 12:14; Admin Dose 2 UNIT; Start 12/14/18 at 17:35 Atorvastatin Calcium (Lipitor) 80 mg QHS PO ; Start 12/14/18 at 21:00 Cholecalciferol (Vitamin D) 1,000 unit DAILY PO ; Start 12/15/18 at 09:00 Acetaminophen (Tylenol Tab) 650 mg Q6H PRN PO MILD PAIN(1-3)OR ELEVATED TEMP; Start 12/14/18 at 12:30 Insulin Glargine (Lantus) 20 units DAILY@2000 SC ; Start 12/14/18 at 20:00 KIM STEELE NP December 14, 2018 15:51
[2018-12-14 20:00] VITALS: BP 140/64; PULSE 89; RESP 18
[2018-12-14] MEDS: ATORVASTATIN 80 MG TAB PO SCH (20:56)
[2018-12-14] MEDS: INSULIN GLARGINE [LANTus] (100 UNITS/ML) SYG SC SCH (20:59)
--- NOTE | 2018-12-14 23:24 | PN ---
Date/Time of Note Date/Time of Note DATE: 12/14/18 TIME: 23:23 Assessment/Plan Lines/Catheters IV Catheter Type (from [facility]): Tavares in Place (from [facility]): No Assessment/Plan Chief Complaint/Hosp Course 1. Acute appendicitis: CT: subcecal appendix that is distended up to 1.1 cm in diameter, moderate periappendiceal fat stranding without appendicolith, abscess or free air: had lengthy conversation with patient and daughter regarding surgical options. At this point, she has decided on conservative management without surgical intervention still despite the fever and leukocytosis. However abx just started today -IV abx -close monitoring> if unimproved or worsens may require surgical intervention -pain mgt -ivf -ok for diet 2. Abdominal pain: -pain mgt -as above 3. Leukocytosis: -as above -trend 4. Normocytic normochromic anemia: -monitor -transfuse as needed 5.Hyponatremia: Judicious fluid correction 6. GIL: -Limit nephrotoxic meds -Renally dose meds -Per renal 7. Minimally elevated alkaline phosphatase: CT: Liver, gallbladder and bile ducts unremarkable -Trend 8. Severe obesity BMI: 37 -diet and exercise optimization -encourage weight loss 9. Umbilical and inguinal hernias -eventual repair Thank you Subjective 24 Hr Interval Summary Fever. No chills. Worsening leukocytosis. Abx just started today. Abdominal pain improved. No nausea vomiting. No cough. No seizure. No blood per mouth or rectum. No dysuria. No headache, visual or neurologic changes. No chest pain or shortness of breath. Patient does not want surgery. Exam/Review of Systems Vital Signs Vitals Vital Signs Date Temp Pulse Resp B/P (MAP) Pulse Ox O2 O2 Flow FiO2 Time Delivery Rate 12/14/18 99.6 89 18 140/64 96 20:00 (89) 12/12/18 Room Air 16:50 Intake and Output 12/13/18 12/13/18 12/14/18 1515:00 23:00 07:00 IntakeIntake Total 800 ml 650 ml 50 ml BalanceBalance 800 ml 650 ml 50 ml Exam Free Text/Dictation Constitutional: alert, oriented Psych: anxiety (min) Eyes: nl conjunctiva, nl lids ENMT: nl external ears & nose, nl lips & teeth, mucosa pink and moist Neck: supple, non-tender; No jvd Respiratory: normal air movement; No congested cough Cardiovascular: regular rate and rhythm; No edema Gastrointestinal: soft, tender (diffuse, most tender RLQ) Genitourinary - Female: nl external genitalia Musculoskeletal: nl extremities to inspection, nl gait and stance Extremities: normal pulses Neurological: nl mental status, nl speech, nl strength Skin: No rash or lesions Lymph: nl lymph nodes Results Result Diagram: 12/14/18 0547 12/14/18 0547 BRI SALCEDO MD December 14, 2018 23:24
[2018-12-15] MEDS: PIPER-TAZO 2.25 GM (PMX) 50 ML IVPB SCH ×4 (00:25→17:29)
[2018-12-15 02:00] VITALS: BP 120/57; PULSE 88; RESP 18
[2018-12-15] MEDS: SOD CHLORIDE 0.9% 1,000 ML IV SCH ×3 (02:40→23:40)
[2018-12-15] MEDS: PANTOPRAZOLE (EC) 40 MG TAB PO SCH (05:22)
[2018-12-15] MEDS: INSULIN ASPART [NOVOLOG] 3 ML PEN SC SCH ×4 (08:01→20:54)
[2018-12-15 08:03] VITALS: BP 138/64; PULSE 79; RESP 17
[2018-12-15] MEDS: ACETAMINOPHEN 325 MG TAB PO PRN (08:11)
[2018-12-15] MEDS: CHOLECALCIFEROL 1,000 UNIT TAB PO SCH (08:11)
--- NOTE | 2018-12-15 10:16 | CONS ---
Assessment/Plan Assessment/Plan Assessment/Plan (Daily) 1. acute kidney injury due to Severe preneal azotemia due to decreased PO intake 2. Acute appendicitis 3. acute abdominal pain 3. H/O HTN 4. H/o HL 5. H/o DM II Plan: BUN/Cr 18/1.88, Na 132, K normal, D/c IVF D51/2NS, start IVF NS at 100 cc/hr IV abx zosyn 2.25 gram IV Q 6 hr for acute appendicitis Kidneys unremarkabel on CT abdomen + pelvis Expecting Cr to improve with IVF hydration will follow up Consultation Date/Type/Reason Admit Date/Time December 12, 2018 at 14:45 Initial Consult Date 12/12/18 Type of Consult NEPHROLOGY Requesting Provider: TERRI SESAY Date/Time of Note DATE: 12/15/18 TIME: 10:16 Exam/Review of Systems Exam Vitals Vital Signs Date Temp Pulse Resp B/P (MAP) Pulse Ox O2 O2 Flow FiO2 Time Delivery Rate 12/15/18 98.9 79 17 138/64 97 Room Air 08:03 (88) Intake and Output 12/14/18 12/14/18 12/15/18 1515:00 23:00 07:00 IntakeIntake Total 1050 ml 1900 ml 1250 ml BalanceBalance 1050 ml 1900 ml 1250 ml Exam Constitutional: alert, awake, no acute distress Respiratory: clear to auscultation, normal air movement, diminished breath sounds Cardiovascular: regular rate and rhythm, nl pulses Gastrointestinal: soft Genitourinary - Female: nl adnexae Musculoskeletal: nl extremities to inspection Extremities: normal pulses 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 Results Result Diagram: 12/15/18 0452 12/15/18 0452 Results 24hrs Laboratory Tests Test 12/14/18 11:57 12/14/18 16:48 12/14/18 20:55 12/15/18 02:07 Bedside Glucose 213 323 H 292 H 279 H Test 12/15/18 04:52 12/15/18 07:58 White Blood Count 14.1 H Red Blood Count 2.69 L Hemoglobin 8.3 L Hematocrit 24.8 L Mean Corpuscular 92.2 Volume Mean Corpuscular 30.9 Hemoglobin Mean Corpuscular 33.5 Hemoglobin Concent Red Cell 12.6 Distribution Width Platelet Count 274 Mean Platelet Volume 9.1 Immature 0.600 H Granulocytes % Neutrophils % 85.9 H Lymphocytes % 8.2 L Monocytes % 4.6 Eosinophils % 0.4 Basophils % 0.3 Nucleated Red Blood 0.0 Cells % Immature 0.080 H Granulocytes # Neutrophils # 12.1 H Lymphocytes # 1.2 Monocytes # 0.7 Eosinophils # 0.1 Basophils # 0.0 Nucleated Red Blood 0.0 Cells # Sodium Level 132 L Potassium Level 4.1 Chloride Level 104 Carbon Dioxide Level 23 Anion Gap 5 Blood Urea Nitrogen 18 Creatinine 1.88 H Est Glomerular 27 L Filtrat Rate mL/min Glucose Level 247 H Calcium Level 8.4 Phosphorus Level 2.7 Magnesium Level 1.9 Bedside Glucose 238 H Medications Medication Current Medications IV Flush (NS 3 ml) 3 ml PER PROTOCOL IV ; Start 12/12/18 at 15:30 Ondansetron HCl (Zofran Inj) 4 mg Q6H PRN IV NAUSEA/VOMITING Last administered on 12/13/18at 14:31; Admin Dose 4 MG; Start 12/12/18 at 15:30 Acetaminophen/ Hydrocodone Bitart ([place] (5/325)) 1 tab Q6H PRN PO .PAIN 4-6 Last administered on 12/12/18at 21:47; Admin Dose 1 TAB; Start 12/12/18 at 15:30 Morphine Sulfate (morphine) 2 mg Q4H PRN IV .PAIN 7-10 Last administered on 12/14/18at 02:13; Admin Dose 2 MG; Start 12/12/18 at 15:30 Hydralazine HCl (Apresoline) 10 mg Q4H PRN IV sbp >160; Start 12/12/18 at 15:30 Miscellaneous Information 1 ea NOTE XX ; Start 12/12/18 at 17:00 Glucose (Glutose) 15 gm Q15M PRN PO DECREASED GLUCOSE; Start 12/12/18 at 17:00 Glucose (Glutose) 22.5 gm Q15M PRN PO DECREASED GLUCOSE; Start 12/12/18 at 17:00 Dextrose (D50w Syringe) 25 ml Q15M PRN IV DECREASED GLUCOSE; Start 12/12/18 at 17:00 Dextrose (D50w Syringe) 50 ml Q15M PRN IV DECREASED GLUCOSE; Start 12/12/18 at 17:00 Glucagon (Glucagen) 1 mg Q15M PRN IM DECREASED GLUCOSE; Start 12/12/18 at 17:00 Glucose (Glutose) 15 gm Q15M PRN BUCCAL DECREASED GLUCOSE; Start 12/12/18 at 17:00 Piperacillin Sod/ Tazobactam Sod 50 ml @ 200 mls/hr Q6 IVPB Last administered on 12/15/18 05:22; Admin Dose 200 MLS/HR; Start 12/13/18 at 10:00 Pantoprazole (Protonix Tab) 40 mg DAILY@06 PO Last administered on 12/15/18 05:22; Admin Dose 40 MG; Start 12/15/18 at 06:00 Insulin Aspart (Novolog Insulin Pen) (Adult SC Insulin - Mild Algorithm)... AC MEALS AND BEDTIME SC Last administered on 12/15/18 08:01; Admin Dose 3 UNIT; Start 12/14/18 at 17:35 Atorvastatin Calcium (Lipitor) 80 mg QHS PO Last administered on 12/14/18 20:56; Admin Dose 80 MG; Start 12/14/18 at 21:00 Cholecalciferol (Vitamin D) 1,000 unit DAILY PO Last administered on 12/15/18 08:11; Admin Dose 1,000 UNIT; Start 12/15/18 at 09:00 Acetaminophen (Tylenol Tab) 650 mg Q6H PRN PO MILD PAIN(1-3)OR ELEVATED TEMP Last administered on 12/15/18 08:11; Admin Dose 650 MG; Start 12/14/18 at 12:30 Insulin Glargine (Lantus) 20 units DAILY@2000 SC Last administered on 12/14/18 20:59; Admin Dose 20 UNITS; Start 12/14/18 at 20:00 Sodium Chloride 1,000 ml @ 100 mls/hr Q10H IV Last administered on 12/15/18 02:40; Admin Dose 100 MLS/HR; Start 12/15/18 at 02:30 DANE GREEN MD December 15, 2018 10:16
[2018-12-15 14:08] VITALS: BP 129/58; PULSE 76; RESP 17
--- NOTE | 2018-12-15 18:10 | PN ---
Date/Time of Note Date/Time of Note DATE: 12/15/18 TIME: 18:03 Assessment/Plan VTE Prophylaxis Risk score (from Ns)>0 risk: 1 SCD applied (from Ns): Yes Pharmacological prophylaxis: NA/contraindicated Pharm contraindication: low risk/ambulating Lines/Catheters IV Catheter Type (from [facility]): Peripheral IV Urinary Cath still in place: No Assessment/Plan Assessment/Plan 1. Acute appendicitis - seen on CT scan - Gen surgery on board and appreciate recommendations - continue conservative treatment for now. tolerating clear diet - still with elevated WBC and low grade temp - ID on board for antibiotic management 2. Diabetes mellitus - ISS and accuchecks - A1c noted 3. Dyslipidemia - continue statin 4. Hypertension - stable - hold BP meds for now 5. GERD - PPI 6. GIL - Cr trending down - continue IVF -Nephrology consultation appreciated 7. Disposition - continue monitoring for improvement in renal function. Current on clear diet and will advance based on surgery recommendations Result Diagram: 12/15/18 0452 12/15/18 0452 Results 24hrs Laboratory Tests Test 12/14/18 20:55 12/15/18 02:07 12/15/18 04:52 12/15/18 07:58 Bedside Glucose 292 H 279 H 238 H White Blood Count 14.1 H Red Blood Count 2.69 L Hemoglobin 8.3 L Hematocrit 24.8 L Mean Corpuscular 92.2 Volume Mean Corpuscular 30.9 Hemoglobin Mean Corpuscular 33.5 Hemoglobin Concent Red Cell 12.6 Distribution Width Platelet Count 274 Mean Platelet Volume 9.1 Immature 0.600 H Granulocytes % Neutrophils % 85.9 H Lymphocytes % 8.2 L Monocytes % 4.6 Eosinophils % 0.4 Basophils % 0.3 Nucleated Red Blood 0.0 Cells % Immature 0.080 H Granulocytes # Neutrophils # 12.1 H Lymphocytes # 1.2 Monocytes # 0.7 Eosinophils # 0.1 Basophils # 0.0 Nucleated Red Blood 0.0 Cells # Sodium Level 132 L Potassium Level 4.1 Chloride Level 104 Carbon Dioxide Level 23 Anion Gap 5 Blood Urea Nitrogen 18 Creatinine 1.88 H Est Glomerular 27 L Filtrat Rate mL/min Glucose Level 247 H Calcium Level 8.4 Phosphorus Level 2.7 Magnesium Level 1.9 Test 12/15/18 11:43 12/15/18 17:26 Bedside Glucose 214 225 H Subjective 24 Hr Interval Summary Free Text/Dictation Patient states shes doing okay and tolerating clear diet. No acute overnight events. Exam/Review of Systems Exam Vitals Vital Signs Date Temp Pulse Resp B/P (MAP) Pulse Ox O2 O2 Flow FiO2 Time Delivery Rate 12/15/18 98.0 76 17 129/58 100 Room Air 14:08 (81) Intake and Output 12/14/18 12/14/18 12/15/18 1515:00 23:00 07:00 IntakeIntake Total 1050 ml 1900 ml 1250 ml BalanceBalance 1050 ml 1900 ml 1250 ml Exam General: Patient is laying in bed and answers questions appropriately Neck: Supple, nontender, midline Respiratory: Clear to auscultation bilaterally. no wheezing or rhonchi Cardiovascular: regular rate and rhythm, no obvious murmurs Gastrointestinal: soft, nontender palpation, nondistended, bowel sounds heard. Ext: Moves all extremities spontaneously Skin: No new skin lesions Results Results 24hrs Laboratory Tests Test 12/14/18 20:55 12/15/18 02:07 12/15/18 04:52 12/15/18 07:58 Bedside Glucose 292 H 279 H 238 H White Blood Count 14.1 H Red Blood Count 2.69 L Hemoglobin 8.3 L Hematocrit 24.8 L Mean Corpuscular 92.2 Volume Mean Corpuscular 30.9 Hemoglobin Mean Corpuscular 33.5 Hemoglobin Concent Red Cell 12.6 Distribution Width Platelet Count 274 Mean Platelet Volume 9.1 Immature 0.600 H Granulocytes % Neutrophils % 85.9 H Lymphocytes % 8.2 L Monocytes % 4.6 Eosinophils % 0.4 Basophils % 0.3 Nucleated Red Blood 0.0 Cells % Immature 0.080 H Granulocytes # Neutrophils # 12.1 H Lymphocytes # 1.2 Monocytes # 0.7 Eosinophils # 0.1 Basophils # 0.0 Nucleated Red Blood 0.0 Cells # Sodium Level 132 L Potassium Level 4.1 Chloride Level 104 Carbon Dioxide Level 23 Anion Gap 5 Blood Urea Nitrogen 18 Creatinine 1.88 H Est Glomerular 27 L Filtrat Rate mL/min Glucose Level 247 H Calcium Level 8.4 Phosphorus Level 2.7 Magnesium Level 1.9 Test 12/15/18 11:43 12/15/18 17:26 Bedside Glucose 214 225 H Medications Medication Current Medications IV Flush (NS 3 ml) 3 ml PER PROTOCOL IV ; Start 12/12/18 at 15:30 Ondansetron HCl (Zofran Inj) 4 mg Q6H PRN IV NAUSEA/VOMITING Last administered on 12/13/18at 14:31; Admin Dose 4 MG; Start 12/12/18 at 15:30 Acetaminophen/ Hydrocodone Bitart ([place] (5/325)) 1 tab Q6H PRN PO .PAIN 4-6 Last administered on 12/12/18at 21:47; Admin Dose 1 TAB; Start 12/12/18 at 15:30 Morphine Sulfate (morphine) 2 mg Q4H PRN IV .PAIN 7-10 Last administered on 12/14/18at 02:13; Admin Dose 2 MG; Start 12/12/18 at 15:30 Hydralazine HCl (Apresoline) 10 mg Q4H PRN IV sbp >160; Start 12/12/18 at 15:30 Miscellaneous Information 1 ea NOTE XX ; Start 12/12/18 at 17:00 Glucose (Glutose) 15 gm Q15M PRN PO DECREASED GLUCOSE; Start 12/12/18 at 17:00 Glucose (Glutose) 22.5 gm Q15M PRN PO DECREASED GLUCOSE; Start 12/12/18 at 17:00 Dextrose (D50w Syringe) 25 ml Q15M PRN IV DECREASED GLUCOSE; Start 12/12/18 at 17:00 Dextrose (D50w Syringe) 50 ml Q15M PRN IV DECREASED GLUCOSE; Start 12/12/18 at 17:00 Glucagon (Glucagen) 1 mg Q15M PRN IM DECREASED GLUCOSE; Start 12/12/18 at 17:00 Glucose (Glutose) 15 gm Q15M PRN BUCCAL DECREASED GLUCOSE; Start 12/12/18 at 17:00 Piperacillin Sod/ Tazobactam Sod 50 ml @ 200 mls/hr Q6 IVPB Last administered on 12/15/18at 17:29; Admin Dose 200 MLS/HR; Start 12/13/18 at 10:00 Pantoprazole (Protonix Tab) 40 mg DAILY@06 PO Last administered on 12/15/18at 05:22; Admin Dose 40 MG; Start 12/15/18 at 06:00 Insulin Aspart (Novolog Insulin Pen) (Adult SC Insulin - Mild Algorithm)... AC MEALS AND BEDTIME SC Last administered on 12/15/18 17:28; Admin Dose 3 UNIT; Start 12/14/18 at 17:35 Atorvastatin Calcium (Lipitor) 80 mg QHS PO Last administered on 12/14/18 20:56; Admin Dose 80 MG; Start 12/14/18 at 21:00 Cholecalciferol (Vitamin D) 1,000 unit DAILY PO Last administered on 12/15/18 08:11; Admin Dose 1,000 UNIT; Start 12/15/18 at 09:00 Acetaminophen (Tylenol Tab) 650 mg Q6H PRN PO MILD PAIN(1-3)OR ELEVATED TEMP Last administered on 12/15/18 08:11; Admin Dose 650 MG; Start 12/14/18 at 12:30 Insulin Glargine (Lantus) 20 units DAILY@2000 SC Last administered on 12/14/18 20:59; Admin Dose 20 UNITS; Start 12/14/18 at 20:00 Sodium Chloride 1,000 ml @ 100 mls/hr Q10H IV Last administered on 12/15/18 13:22; Admin Dose 100 MLS/HR; Start 12/15/18 at 02:30 CALEB VALENTIN MD December 15, 2018 18:10
[2018-12-15 20:00] VITALS: BP 148/65; PULSE 86; RESP 18
[2018-12-15] MEDS: ATORVASTATIN 80 MG TAB PO SCH (20:52)
[2018-12-15] MEDS: INSULIN GLARGINE [LANTus] (100 UNITS/ML) SYG SC SCH (20:54)
[2018-12-16] MEDS: PIPER-TAZO 2.25 GM (PMX) 50 ML IVPB SCH ×4 (00:15→18:30)
[2018-12-16 02:00] VITALS: BP 132/59; PULSE 85; RESP 17
[2018-12-16] MEDS: PANTOPRAZOLE (EC) 40 MG TAB PO SCH (06:00)
[2018-12-16 08:04] VITALS: BP 136/63; PULSE 78; RESP 17
[2018-12-16] MEDS: CHOLECALCIFEROL 1,000 UNIT TAB PO SCH (08:30)
[2018-12-16] MEDS: INSULIN ASPART [NOVOLOG] 3 ML PEN SC SCH ×4 (08:31→22:29)
[2018-12-16] MEDS: SOD CHLORIDE 0.9% 1,000 ML IV SCH ×2 (09:31→18:30)
--- NOTE | 2018-12-16 10:39 | PN ---
Date/Time of Note Date/Time of Note DATE: 12/16/18 TIME: 10:30 Assessment/Plan VTE Prophylaxis Risk score (from Ns)>0 risk: 4 SCD applied (from Ns): Yes Pharmacological prophylaxis: NA/contraindicated Pharm contraindication: low risk/ambulating Lines/Catheters IV Catheter Type (from [facility]): Peripheral IV Urinary Cath still in place: No Assessment/Plan Assessment/Plan 1. Acute appendicitis - will continue conservative treatment for now and monitor for tolerance of advanced diet - seen on CT scan - Gen surgery on board and appreciate recommendations - WBC normalized and remains afebrile - ID on board for antibiotic management 2. Diabetes mellitus - ISS and accuchecks - A1c noted 3. Dyslipidemia - continue statin 4. Hypertension - stable - hold BP meds for now 5. GERD - PPI 6. GIL on CKD - Patient states she has had a history of renal issues in the past - Cr improving - Nephrology on board and appreciate recommendations. Will continue current treatment. Improving with IVF 7. Disposition - Will advance diet as tolerated. Once tolerating regular diet without issues and cleared for discharge from Nephrology standpoint, will d/c home Result Diagram: 12/16/1827 12/16/18526 Results 24hrs Laboratory Tests Test 12/15/18 11:43 12/15/18 17:26 12/15/18 20:51 12/16/18 01:57 Bedside Glucose 214 225 H 185 156 Test 12/16/18 05:27 12/16/18 08:29 White Blood Count 10.8 # Red Blood Count 2.57 L Hemoglobin 7.9 L Hematocrit 23.9 L Mean Corpuscular 93.0 Volume Mean Corpuscular 30.7 Hemoglobin Mean Corpuscular 33.1 Hemoglobin Concent Red Cell 12.4 Distribution Width Platelet Count 298 Mean Platelet Volume 8.8 Immature 0.600 H Granulocytes % Neutrophils % 81.5 H Lymphocytes % 11.1 L Monocytes % 5.7 Eosinophils % 0.6 Basophils % 0.5 Nucleated Red Blood 0.0 Cells % Immature 0.060 H Granulocytes # Neutrophils # 8.8 H Lymphocytes # 1.2 Monocytes # 0.6 Eosinophils # 0.1 Basophils # 0.1 Nucleated Red Blood 0.0 Cells # Sodium Level 137 Potassium Level 4.0 Chloride Level 110 Carbon Dioxide Level 21 Anion Gap 6 Blood Urea Nitrogen 15 Creatinine 1.77 H Glucose Level 150 Calcium Level 8.4 Phosphorus Level 3.0 Magnesium Level 1.8 Albumin 2.7 L Bedside Glucose 143 Subjective 24 Hr Interval Summary Free Text/Dictation Patient states shes doing well and denies any abdominal discomfort. Discussed advancing diet and if tolerating, d/c home Exam/Review of Systems Exam Vitals Vital Signs Date Temp Pulse Resp B/P (MAP) Pulse Ox O2 O2 Flow FiO2 Time Delivery Rate 12/16/18 98.0 78 17 136/63 98 Room Air 08:04 (87) Intake and Output 12/15/18 12/15/18 12/16/18 1515:00 23:00 07:00 IntakeIntake Total 1600 ml 850 ml 1350 ml BalanceBalance 1600 ml 850 ml 1350 ml Exam General: Patient is laying in bed and answers questions appropriately Neck: Supple, nontender, midline Respiratory: Clear to auscultation bilaterally. no wheezing or rhonchi Cardiovascular: regular rate and rhythm, no obvious murmurs Gastrointestinal: soft, nontender palpation, nondistended, bowel sounds heard. Ext: Moves all extremities spontaneously Skin: No new skin lesions Results Results 24hrs Laboratory Tests Test 12/15/18 11:43 12/15/18 17:26 12/15/18 20:51 12/16/18 01:57 Bedside Glucose 214 225 H 185 156 Test 12/16/18 05:27 12/16/18 08:29 White Blood Count 10.8 # Red Blood Count 2.57 L Hemoglobin 7.9 L Hematocrit 23.9 L Mean Corpuscular 93.0 Volume Mean Corpuscular 30.7 Hemoglobin Mean Corpuscular 33.1 Hemoglobin Concent Red Cell 12.4 Distribution Width Platelet Count 298 Mean Platelet Volume 8.8 Immature 0.600 H Granulocytes % Neutrophils % 81.5 H Lymphocytes % 11.1 L Monocytes % 5.7 Eosinophils % 0.6 Basophils % 0.5 Nucleated Red Blood 0.0 Cells % Immature 0.060 H Granulocytes # Neutrophils # 8.8 H Lymphocytes # 1.2 Monocytes # 0.6 Eosinophils # 0.1 Basophils # 0.1 Nucleated Red Blood 0.0 Cells # Sodium Level 137 Potassium Level 4.0 Chloride Level 110 Carbon Dioxide Level 21 Anion Gap 6 Blood Urea Nitrogen 15 Creatinine 1.77 H Glucose Level 150 Calcium Level 8.4 Phosphorus Level 3.0 Magnesium Level 1.8 Albumin 2.7 L Bedside Glucose 143 Medications Medication Current Medications IV Flush (NS 3 ml) 3 ml PER PROTOCOL IV ; Start 12/12/18 at 15:30 Ondansetron HCl (Zofran Inj) 4 mg Q6H PRN IV NAUSEA/VOMITING Last administered on 12/13/18at 14:31; Admin Dose 4 MG; Start 12/12/18 at 15:30 Acetaminophen/ Hydrocodone Bitart ([place] (5/325)) 1 tab Q6H PRN PO .PAIN 4-6 Last administered on 12/12/18at 21:47; Admin Dose 1 TAB; Start 12/12/18 at 15:30 Morphine Sulfate (morphine) 2 mg Q4H PRN IV .PAIN 7-10 Last administered on 12/14/18at 02:13; Admin Dose 2 MG; Start 12/12/18 at 15:30 Hydralazine HCl (Apresoline) 10 mg Q4H PRN IV sbp >160; Start 12/12/18 at 15:30 Miscellaneous Information 1 ea NOTE XX ; Start 12/12/18 at 17:00 Glucose (Glutose) 15 gm Q15M PRN PO DECREASED GLUCOSE; Start 12/12/18 at 17:00 Glucose (Glutose) 22.5 gm Q15M PRN PO DECREASED GLUCOSE; Start 12/12/18 at 17:00 Dextrose (D50w Syringe) 25 ml Q15M PRN IV DECREASED GLUCOSE; Start 12/12/18 at 17:00 Dextrose (D50w Syringe) 50 ml Q15M PRN IV DECREASED GLUCOSE; Start 12/12/18 at 17:00 Glucagon (Glucagen) 1 mg Q15M PRN IM DECREASED GLUCOSE; Start 12/12/18 at 17:00 Glucose (Glutose) 15 gm Q15M PRN BUCCAL DECREASED GLUCOSE; Start 12/12/18 at 17:00 Piperacillin Sod/ Tazobactam Sod 50 ml @ 200 mls/hr Q6 IVPB Last administered on 12/16/18at 06:01; Admin Dose 200 MLS/HR; Start 12/13/18 at 10:00 Pantoprazole (Protonix Tab) 40 mg DAILY@06 PO Last administered on 12/16/18at 06:00; Admin Dose 40 MG; Start 12/15/18 at 06:00 Insulin Aspart (Novolog Insulin Pen) (Adult SC Insulin - Mild Algorithm)... AC MEALS AND BEDTIME SC Last administered on 12/16/18 08:31; Admin Dose 1 UNIT; Start 12/14/18 at 17:35 Atorvastatin Calcium (Lipitor) 80 mg QHS PO Last administered on 12/15/18 20:52; Admin Dose 80 MG; Start 12/14/18 at 21:00 Cholecalciferol (Vitamin D) 1,000 unit DAILY PO Last administered on 12/16/18 08:30; Admin Dose 1,000 UNIT; Start 12/15/18 at 09:00 Acetaminophen (Tylenol Tab) 650 mg Q6H PRN PO MILD PAIN(1-3)OR ELEVATED TEMP Last administered on 12/15/18 08:11; Admin Dose 650 MG; Start 12/14/18 at 12:30 Insulin Glargine (Lantus) 20 units DAILY@2000 SC Last administered on 12/15/18 20:54; Admin Dose 20 UNITS; Start 12/14/18 at 20:00 Sodium Chloride 1,000 ml @ 100 mls/hr Q10H IV Last administered on 12/16/18 09:31; Admin Dose 100 MLS/HR; Start 12/15/18 at 02:30 CALEB VALENTIN MD December 16, 2018 10:39
--- NOTE | 2018-12-16 13:29 | PN ---
Date/Time of Note Date/Time of Note DATE: 12/16/18 TIME: 13:25 Assessment/Plan Lines/Catheters IV Catheter Type (from [facility]): Peripheral IV [place] in Place (from [facility]): No Assessment/Plan Chief Complaint/Hosp Course 1. Acute appendicitis: CT: subcecal appendix that is distended up to 1.1 cm in diameter, moderate periappendiceal fat stranding without appendicolith, abscess or free air: had lengthy conversation with patient and daughter regarding surgical options. At this point, she has decided on conservative management without surgical intervention fever and leukocytosis resolved -Continue IV abx> per ID -close monitoring> if unimproved or worsens may require surgical intervention -pain mgt -ivf -ok for diet 2. Abdominal pain: -pain mgt -as above 3. Leukocytosis: Resolved -as above -trend 4. Normocytic normochromic anemia: -monitor -transfuse as needed 5.Hyponatremia: Resolved Judicious fluid correction 6. GIL: Improved -Limit nephrotoxic meds -Renally dose meds -Per renal 7. Minimally elevated alkaline phosphatase: CT: Liver, gallbladder and bile ducts unremarkable -Trend 8. Severe obesity BMI: 37 -diet and exercise optimization -encourage weight loss 9. Umbilical and inguinal hernias -eventual repair Thank you. Patient seen and examined in collaboration with Dr. Mehrdad Collins. Subjective 24 Hr Interval Summary Feels much improved. Abdominal pain almost fully resolved. + Flatus. Tolerating clears. WBC normalized. No fevers, chills, sob, congested cough, cp, palpitations, tobar, dizziness, nausea, vomiting, diarrhea, dysuria. Exam/Review of Systems Vital Signs Vitals Vital Signs Date Temp Pulse Resp B/P (MAP) Pulse Ox O2 O2 Flow FiO2 Time Delivery Rate 12/16/18 98.0 78 17 136/63 98 Room Air 08:04 (87) Intake and Output 12/15/18 12/15/18 12/16/18 1515:00 23:00 07:00 IntakeIntake Total 1600 ml 850 ml 1350 ml BalanceBalance 1600 ml 850 ml 1350 ml Exam Free Text/Dictation Constitutional: alert, oriented Psych: anxiety (min) Eyes: nl conjunctiva, nl lids ENMT: nl external ears & nose, nl lips & teeth, mucosa pink and moist Neck: supple, non-tender; No jvd Respiratory: normal air movement; No congested cough Cardiovascular: regular rate and rhythm; No edema Gastrointestinal: soft, tender (diffuse, most tender RLQ) Genitourinary - Female: nl external genitalia Musculoskeletal: nl extremities to inspection, nl gait and stance Extremities: normal pulses Neurological: nl mental status, nl speech, nl strength Skin: No rash or lesions Lymph: nl lymph nodes Results Result Diagram: 12/16/18 0527 12/16/18 0527 MATTHEW GALLEGOS NP December 16, 2018 13:29
[2018-12-16 14:00] VITALS: BP 155/70; PULSE 85; RESP 17
--- NOTE | 2018-12-16 14:08 | CONS ---
Assessment/Plan Assessment/Plan Assessment/Plan (Daily) 1. acute kidney injury due to Severe preneal azotemia due to decreased PO intake 2. Acute appendicitis 3. acute abdominal pain 3. H/O HTN 4. H/o HL 5. H/o DM II Plan: BUN/Cr 15/1.77, , Na 137, K normal, Continue IVF NS, decrease rate to 50 cc/hr - Hb 8.3- likely due to chronic disease, pt has no CKD, so it is not from CKD IV abx zosyn 2.25 gram IV Q 6 hr for acute appendicitis Kidneys unremarkabel on CT abdomen + pelvis Expecting Cr to improve with IVF hydration will follow up Consultation Date/Type/Reason Admit Date/Time December 12, 2018 at 14:45 Initial Consult Date 12/12/18 Type of Consult NEPHROLOGY Requesting Provider: TERRI SESAY Date/Time of Note DATE: 12/16/18 TIME: 14:08 Exam/Review of Systems Exam Vitals Vital Signs Date Temp Pulse Resp B/P (MAP) Pulse Ox O2 O2 Flow FiO2 Time Delivery Rate 12/16/18 98.0 78 17 136/63 98 Room Air 08:04 (87) Intake and Output 12/15/18 12/15/18 12/16/18 1515:00 23:00 07:00 IntakeIntake Total 1600 ml 850 ml 1350 ml BalanceBalance 1600 ml 850 ml 1350 ml Exam Constitutional: alert, awake, no acute distress Respiratory: clear to auscultation, normal air movement, diminished breath sounds Cardiovascular: regular rate and rhythm, nl pulses Gastrointestinal: soft, ND, NT, BS+ Musculoskeletal: nl extremities to inspection Extremities: normal pulses Neurological: BOTTLE MACHINE OPERATOR II-XII intact Results Result Diagram: 12/16/18 0527 12/16/18 0527 Results 24hrs Laboratory Tests Test 12/15/18 17:26 12/15/18 20:51 12/16/18 01:57 12/16/18 05:27 Bedside Glucose 225 H 185 156 White Blood Count 10.8 # Red Blood Count 2.57 L Hemoglobin 7.9 L Hematocrit 23.9 L Mean Corpuscular 93.0 Volume Mean Corpuscular 30.7 Hemoglobin Mean Corpuscular 33.1 Hemoglobin Concent Red Cell 12.4 Distribution Width Platelet Count 298 Mean Platelet Volume 8.8 Immature 0.600 H Granulocytes % Neutrophils % 81.5 H Lymphocytes % 11.1 L Monocytes % 5.7 Eosinophils % 0.6 Basophils % 0.5 Nucleated Red Blood 0.0 Cells % Immature 0.060 H Granulocytes # Neutrophils # 8.8 H Lymphocytes # 1.2 Monocytes # 0.6 Eosinophils # 0.1 Basophils # 0.1 Nucleated Red Blood 0.0 Cells # Sodium Level 137 Potassium Level 4.0 Chloride Level 110 Carbon Dioxide Level 21 Anion Gap 6 Blood Urea Nitrogen 15 Creatinine 1.77 H Glucose Level 150 Calcium Level 8.4 Phosphorus Level 3.0 Magnesium Level 1.8 Albumin 2.7 L Test 12/16/18 08:29 12/16/18 12:23 Bedside Glucose 143 171 Medications Medication Current Medications IV Flush (NS 3 ml) 3 ml PER PROTOCOL IV ; Start 12/12/18 at 15:30 Ondansetron HCl (Zofran Inj) 4 mg Q6H PRN IV NAUSEA/VOMITING Last administered on 12/13/18at 14:31; Admin Dose 4 MG; Start 12/12/18 at 15:30 Acetaminophen/ Hydrocodone Bitart ([place] (5/325)) 1 tab Q6H PRN PO .PAIN 4-6 Last administered on 12/12/18at 21:47; Admin Dose 1 TAB; Start 12/12/18 at 15:30 Morphine Sulfate (morphine) 2 mg Q4H PRN IV .PAIN 7-10 Last administered on 12/14/18at 02:13; Admin Dose 2 MG; Start 12/12/18 at 15:30 Hydralazine HCl (Apresoline) 10 mg Q4H PRN IV sbp >160; Start 12/12/18 at 15:30 Miscellaneous Information 1 ea NOTE XX ; Start 12/12/18 at 17:00 Glucose (Glutose) 15 gm Q15M PRN PO DECREASED GLUCOSE; Start 12/12/18 at 17:00 Glucose (Glutose) 22.5 gm Q15M PRN PO DECREASED GLUCOSE; Start 12/12/18 at 17:00 Dextrose (D50w Syringe) 25 ml Q15M PRN IV DECREASED GLUCOSE; Start 12/12/18 at 17:00 Dextrose (D50w Syringe) 50 ml Q15M PRN IV DECREASED GLUCOSE; Start 12/12/18 at 17:00 Glucagon (Glucagen) 1 mg Q15M PRN IM DECREASED GLUCOSE; Start 12/12/18 at 17:00 Glucose (Glutose) 15 gm Q15M PRN BUCCAL DECREASED GLUCOSE; Start 12/12/18 at 17:00 Piperacillin Sod/ Tazobactam Sod 50 ml @ 200 mls/hr Q6 IVPB Last administered on 12/16/18 12:24; Admin Dose 200 MLS/HR; Start 12/13/18 at 10:00 Pantoprazole (Protonix Tab) 40 mg DAILY@06 PO Last administered on 12/16/18 06:00; Admin Dose 40 MG; Start 12/15/18 at 06:00 Insulin Aspart (Novolog Insulin Pen) (Adult SC Insulin - Mild Algorithm)... AC MEALS AND BEDTIME SC Last administered on 12/16/18 12:27; Admin Dose 1 UNIT; Start 12/14/18 at 17:35 Atorvastatin Calcium (Lipitor) 80 mg QHS PO Last administered on 12/15/18 20:52; Admin Dose 80 MG; Start 12/14/18 at 21:00 Cholecalciferol (Vitamin D) 1,000 unit DAILY PO Last administered on 12/16/18 08:30; Admin Dose 1,000 UNIT; Start 12/15/18 at 09:00 Acetaminophen (Tylenol Tab) 650 mg Q6H PRN PO MILD PAIN(1-3)OR ELEVATED TEMP Last administered on 12/15/18 08:11; Admin Dose 650 MG; Start 12/14/18 at 12:30 Insulin Glargine (Lantus) 20 units DAILY@2000 SC Last administered on 12/15/18 20:54; Admin Dose 20 UNITS; Start 12/14/18 at 20:00 Sodium Chloride 1,000 ml @ 100 mls/hr Q10H IV Last administered on 12/16/18 09:31; Admin Dose 100 MLS/HR; Start 12/15/18 at 02:30 DANE GREEN MD December 16, 2018 14:08
--- NOTE | 2018-12-16 15:05 | CONS ---
Assessment/Plan Assessment/Plan Hospital Course (Demo Recall) Patient is alert looks comfortable denies pain no nausea vomiting no diarrhea she tolerates diet WBC 9.8 neutrophils 80.8 BUN 15 creatinine 1.77 Antimicrobials: Zosyn Physical examination: Well-developed middle-aged woman who is alert in no distress. Head atraumatic normocephalic neck is supple chest rise symmetrical breath sounds clear heart: S1-S2 abdomen soft bowel sounds present Assessment: 1. Acute appendicitis 2. Systemic inflammatory response syndrome with resolving leukocytosis 3. Acute kidney insufficiency 4. Obesity Plan: Patient remained stable surgery on case continue medical management as she refused surgical intervention, advance diet as tolerated Consultation Date/Type/Reason Admit Date/Time December 12, 2018 at 14:45 Initial Consult Date 12/12/18 Type of Consult id Requesting Provider: TERRI SESAY Date/Time of Note DATE: 12/16/18 TIME: 15:05 Exam/Review of Systems Exam Vitals Vital Signs Date Temp Pulse Resp B/P (MAP) Pulse Ox O2 O2 Flow FiO2 Time Delivery Rate 12/16/18 98.0 78 17 136/63 98 Room Air 08:04 (87) Intake and Output 12/15/18 12/15/18 12/16/18 1515:00 23:00 07:00 IntakeIntake Total 1600 ml 850 ml 1350 ml BalanceBalance 1600 ml 850 ml 1350 ml Results Result Diagram: 12/16/18 1355 12/16/18 0527 Results 24hrs Laboratory Tests Test 12/15/18 17:26 12/15/18 20:51 12/16/18 01:57 12/16/18 05:27 Bedside Glucose 225 H 185 156 White Blood Count 10.8 # Red Blood Count 2.57 L Hemoglobin 7.9 L Hematocrit 23.9 L Mean Corpuscular 93.0 Volume Mean Corpuscular 30.7 Hemoglobin Mean Corpuscular 33.1 Hemoglobin Concent Red Cell 12.4 Distribution Width Platelet Count 298 Mean Platelet Volume 8.8 Immature 0.600 H Granulocytes % Neutrophils % 81.5 H Lymphocytes % 11.1 L Monocytes % 5.7 Eosinophils % 0.6 Basophils % 0.5 Nucleated Red Blood 0.0 Cells % Immature 0.060 H Granulocytes # Neutrophils # 8.8 H Lymphocytes # 1.2 Monocytes # 0.6 Eosinophils # 0.1 Basophils # 0.1 Nucleated Red Blood 0.0 Cells # Sodium Level 137 Potassium Level 4.0 Chloride Level 110 Carbon Dioxide Level 21 Anion Gap 6 Blood Urea Nitrogen 15 Creatinine 1.77 H Glucose Level 150 Calcium Level 8.4 Phosphorus Level 3.0 Magnesium Level 1.8 Albumin 2.7 L Test 12/16/18 08:29 12/16/18 12:23 12/16/18 13:55 Bedside Glucose 143 171 White Blood Count 9.8 Red Blood Count 2.70 L Hemoglobin 8.3 L Hematocrit 25.2 L Mean Corpuscular 93.3 Volume Mean Corpuscular 30.7 Hemoglobin Mean Corpuscular 32.9 Hemoglobin Concent Red Cell 12.6 Distribution Width Platelet Count 296 Mean Platelet Volume 8.6 Immature 0.600 H Granulocytes % Neutrophils % 80.8 H Lymphocytes % 12.1 L Monocytes % 5.6 Eosinophils % 0.6 Basophils % 0.3 Nucleated Red Blood 0.0 Cells % Immature 0.060 H Granulocytes # Neutrophils # 7.9 H Lymphocytes # 1.2 Monocytes # 0.6 Eosinophils # 0.1 Basophils # 0.0 Nucleated Red Blood 0.0 Cells # Medications Medication Current Medications IV Flush (NS 3 ml) 3 ml PER PROTOCOL IV ; Start 12/12/18 at 15:30 Ondansetron HCl (Zofran Inj) 4 mg Q6H PRN IV NAUSEA/VOMITING Last administered on 12/13/18at 14:31; Admin Dose 4 MG; Start 12/12/18 at 15:30 Acetaminophen/ Hydrocodone Bitart ([place] (5/325)) 1 tab Q6H PRN PO .PAIN 4-6 Last administered on 12/12/18at 21:47; Admin Dose 1 TAB; Start 12/12/18 at 15:30 Morphine Sulfate (morphine) 2 mg Q4H PRN IV .PAIN 7-10 Last administered on 12/14/18at 02:13; Admin Dose 2 MG; Start 12/12/18 at 15:30 Hydralazine HCl (Apresoline) 10 mg Q4H PRN IV sbp >160; Start 12/12/18 at 15:30 Miscellaneous Information 1 ea NOTE XX ; Start 12/12/18 at 17:00 Glucose (Glutose) 15 gm Q15M PRN PO DECREASED GLUCOSE; Start 12/12/18 at 17:00 Glucose (Glutose) 22.5 gm Q15M PRN PO DECREASED GLUCOSE; Start 12/12/18 at 17:00 Dextrose (D50w Syringe) 25 ml Q15M PRN IV DECREASED GLUCOSE; Start 12/12/18 at 17:00 Dextrose (D50w Syringe) 50 ml Q15M PRN IV DECREASED GLUCOSE; Start 12/12/18 at 17:00 Glucagon (Glucagen) 1 mg Q15M PRN IM DECREASED GLUCOSE; Start 12/12/18 at 17:00 Glucose (Glutose) 15 gm Q15M PRN BUCCAL DECREASED GLUCOSE; Start 12/12/18 at 17:00 Piperacillin Sod/ Tazobactam Sod 50 ml @ 200 mls/hr Q6 IVPB Last administered on 12/16/18 12:24; Admin Dose 200 MLS/HR; Start 12/13/18 at 10:00 Pantoprazole (Protonix Tab) 40 mg DAILY@06 PO Last administered on 12/16/18 06 :00; Admin Dose 40 MG; Start 12/15/18 at 06:00 Insulin Aspart (Novolog Insulin Pen) (Adult SC Insulin - Mild Algorithm)... AC MEALS AND BEDTIME SC Last administered on 12/16/18 12:27; Admin Dose 1 UNIT; Start 12/14/18 at 17:35 Atorvastatin Calcium (Lipitor) 80 mg QHS PO Last administered on 12/15/18 20:52; Admin Dose 80 MG; Start 12/14/18 at 21:00 Cholecalciferol (Vitamin D) 1,000 unit DAILY PO Last administered on 12/16/18 08:30; Admin Dose 1,000 UNIT; Start 12/15/18 at 09:00 Acetaminophen (Tylenol Tab) 650 mg Q6H PRN PO MILD PAIN(1-3)OR ELEVATED TEMP Last administered on 12/15/18 08:11; Admin Dose 650 MG; Start 12/14/18 at 12:30 Insulin Glargine (Lantus) 20 units DAILY@2000 SC Last administered on 12/15/18 20:54; Admin Dose 20 UNITS; Start 12/14/18 at 20:00 Sodium Chloride 1,000 ml @ 100 mls/hr Q10H IV Last administered on 12/16/18at 09:31; Admin Dose 100 MLS/HR; Start 12/15/18 at 02:30 SAMI BALLESTEROS NP December 16, 2018 15:05
[2018-12-16 20:00] VITALS: BP 164/71; PULSE 88; RESP 18
[2018-12-16] MEDS: ATORVASTATIN 80 MG TAB PO SCH (20:10)
[2018-12-16] MEDS: INSULIN GLARGINE [LANTus] (100 UNITS/ML) SYG SC SCH (20:12)
[2018-12-16] MEDS: ACETAMINOPHEN 325 MG TAB PO PRN (22:27)
[2018-12-17] MEDS: PIPER-TAZO 2.25 GM (PMX) 50 ML IVPB SCH ×2 (00:21→05:40)
[2018-12-17 02:00] VITALS: BP 132/63; PULSE 84; RESP 18
[2018-12-17] MEDS ORDERED: ACCU-CHEK XX SCH (02:00)
[2018-12-17] MEDS: SOD CHLORIDE 0.9% 1,000 ML IV SCH (04:11)
[2018-12-17] MEDS: PANTOPRAZOLE (EC) 40 MG TAB PO SCH (05:40)
[2018-12-17 08:00] VITALS: BP 125/72; PULSE 81; RESP 18
[2018-12-17] MEDS: INSULIN ASPART [NOVOLOG] 3 ML PEN SC SCH (08:02)
[2018-12-17] MEDS: CHOLECALCIFEROL 1,000 UNIT TAB PO SCH (08:32)
--- NOTE | 2018-12-17 08:54 | CONS ---
Assessment/Plan Assessment/Plan Assessment/Plan (Daily) 1. acute kidney injury due to Severe preneal azotemia due to decreased PO intake 2. Acute appendicitis 3. acute abdominal pain 3. H/O HTN 4. H/o HL 5. H/o DM II Plan: BUN/Cr 18/1.72, , Na 137, K normal, IV abx zosyn 2.25 gram IV Q 6 hr for acute appendicitis Kidneys unremarkabel on CT abdomen + pelvis Follow up with Dr.Kalpesh Green in 1-2 week after discharge will follow up Consultation Date/Type/Reason Admit Date/Time December 12, 2018 at 14:45 Initial Consult Date 12/12/18 Type of Consult NEPHROLOGY Requesting Provider: TERRI SESAY Date/Time of Note DATE: 12/17/18 TIME: 08:54 Exam/Review of Systems Exam Vitals Vital Signs Date Temp Pulse Resp B/P (MAP) Pulse Ox O2 O2 Flow FiO2 Time Delivery Rate 12/17/18 98.5 84 18 132/63 96 02:00 (86) 12/16/18 Room Air 14:00 Intake and Output 12/16/18 12/16/18 12/17/18 1414:59 22:59 06:59 IntakeIntake Total 500 ml 1450 ml 1200 ml BalanceBalance 500 ml 1450 ml 1200 ml Exam Constitutional: alert, awake, no acute distress Respiratory: clear to auscultation, normal air movement, diminished breath sounds Cardiovascular: regular rate and rhythm, nl pulses Gastrointestinal: soft, ND, NT, BS+ Musculoskeletal: nl extremities to inspection Extremities: normal pulses Neurological: [employer] II-XII intact Results Result Diagram: 12/17/18 0545 12/17/18 0546 Results 24hrs Laboratory Tests Test 12/16/18 12:23 12/16/18 13:55 12/16/18 17:21 12/16/18 20:08 Bedside Glucose 171 171 265 H White Blood Count 9.8 Red Blood Count 2.70 L Hemoglobin 8.3 L Hematocrit 25.2 L Mean Corpuscular 93.3 Volume Mean Corpuscular 30.7 Hemoglobin Mean Corpuscular 32.9 Hemoglobin Concent Red Cell 12.6 Distribution Width Platelet Count 296 Mean Platelet Volume 8.6 Immature 0.600 H Granulocytes % Neutrophils % 80.8 H Lymphocytes % 12.1 L Monocytes % 5.6 Eosinophils % 0.6 Basophils % 0.3 Nucleated Red Blood 0.0 Cells % Immature 0.060 H Granulocytes # Neutrophils # 7.9 H Lymphocytes # 1.2 Monocytes # 0.6 Eosinophils # 0.1 Basophils # 0.0 Nucleated Red Blood 0.0 Cells # Test 12/17/18 02:39 12/17/18 05:45 12/17/18 05:46 12/17/18 08:00 Bedside Glucose 259 H 210 White Blood Count 8.7 Red Blood Count 2.66 L Hemoglobin 8.2 L Hematocrit 24.8 L Mean Corpuscular 93.2 Volume Mean Corpuscular 30.8 Hemoglobin Mean Corpuscular 33.1 Hemoglobin Concent Red Cell 12.6 Distribution Width Platelet Count 305 Mean Platelet Volume 8.8 Immature 0.500 H Granulocytes % Neutrophils % 76.6 Lymphocytes % 14.4 L Monocytes % 6.9 Eosinophils % 1.3 Basophils % 0.3 Nucleated Red Blood 0.0 Cells % Immature 0.040 H Granulocytes # Neutrophils # 6.7 Lymphocytes # 1.3 Monocytes # 0.6 Eosinophils # 0.1 Basophils # 0.0 Nucleated Red Blood 0.0 Cells # Sodium Level 137 Potassium Level 3.8 Chloride Level 108 Carbon Dioxide Level 22 Anion Gap 7 Blood Urea Nitrogen 18 Creatinine 1.72 H Glucose Level 225 H Calcium Level 8.5 Phosphorus Level 3.3 Magnesium Level 1.5 L Albumin 2.8 L Medications Medication Current Medications IV Flush (NS 3 ml) 3 ml PER PROTOCOL IV ; Start 12/12/18 at 15:30 Ondansetron HCl (Zofran Inj) 4 mg Q6H PRN IV NAUSEA/VOMITING Last administered on 12/13/18at 14:31; Admin Dose 4 MG; Start 12/12/18 at 15:30 Acetaminophen/ Hydrocodone Bitart ([place] (5/325)) 1 tab Q6H PRN PO .PAIN 4-6 Last administered on 12/12/18at 21:47; Admin Dose 1 TAB; Start 12/12/18 at 15:30 Morphine Sulfate (morphine) 2 mg Q4H PRN IV .PAIN 7-10 Last administered on 12/14/18at 02:13; Admin Dose 2 MG; Start 12/12/18 at 15:30 Hydralazine HCl (Apresoline) 10 mg Q4H PRN IV sbp >160 Last administered on 12/16/18 20:18; Admin Dose 10 MG; Start 12/12/18 at 15:30 Miscellaneous Information 1 ea NOTE XX ; Start 12/12/18 at 17:00 Glucose (Glutose) 15 gm Q15M PRN PO DECREASED GLUCOSE; Start 12/12/18 at 17:00 Glucose (Glutose) 22.5 gm Q15M PRN PO DECREASED GLUCOSE; Start 12/12/18 at 17:00 Dextrose (D50w Syringe) 25 ml Q15M PRN IV DECREASED GLUCOSE; Start 12/12/18 at 17:00 Dextrose (D50w Syringe) 50 ml Q15M PRN IV DECREASED GLUCOSE; Start 12/12/18 at 17:00 Glucagon (Glucagen) 1 mg Q15M PRN IM DECREASED GLUCOSE; Start 12/12/18 at 17:00 Glucose (Glutose) 15 gm Q15M PRN BUCCAL DECREASED GLUCOSE; Start 12/12/18 at 17:00 Piperacillin Sod/ Tazobactam Sod 50 ml @ 200 mls/hr Q6 IVPB Last administered on 12/17/18at 05:40; Admin Dose 200 MLS/HR; Start 12/13/18 at 10:00 Pantoprazole (Protonix Tab) 40 mg DAILY@06 PO Last administered on 12/17/18at 05:40; Admin Dose 40 MG; Start 12/15/18 at 06:00 Atorvastatin Calcium (Lipitor) 80 mg QHS PO Last administered on 12/16/18at 20:10; Admin Dose 80 MG; Start 12/14/18 at 21:00 Cholecalciferol (Vitamin D) 1,000 unit DAILY PO Last administered on 12/17/18at 08:32; Admin Dose 1,000 UNIT; Start 12/15/18 at 09:00 Acetaminophen (Tylenol Tab) 650 mg Q6H PRN PO MILD PAIN(1-3)OR ELEVATED TEMP Last administered on 12/16/18at 22:27; Admin Dose 650 MG; Start 12/14/18 at 12:30 Insulin Glargine (Lantus) 20 units DAILY@2000 SC Last administered on 12/16/18at 20:12; Admin Dose 20 UNITS; Start 12/14/18 at 20:00 Sodium Chloride 1,000 ml @ 100 mls/hr Q10H IV Last administered on 12/17/18at 04:11; Admin Dose 100 MLS/HR; Start 12/15/18 at 02:30 Diagnostic Test (Pha) (Accu-Chek) 1 XX ; Start 12/17/18 at 02:00 Insulin Aspart (Novolog Insulin Pen) NOVOLOG *MILD* ALGORITHM WITH MEALS BEDTIME SC Last administered on 12/17/18at 08:02; Admin Dose 2 UNIT; Start 12/16/18 at 21:00 DANE GREEN MD December 17, 2018 08:54
--- NOTE | 2018-12-17 09:48 | PN ---
Date/Time of Note Date/Time of Note DATE: 12/17/18 TIME: 09:43 Assessment/Plan VTE Prophylaxis Risk score (from Ns)>0 risk: 4 SCD applied (from Ns): Yes Pharmacological prophylaxis: NA/contraindicated Pharm contraindication: low risk/ambulating Lines/Catheters IV [facility]from [facility] Peripheral IV Urinary Cath still in place: No Assessment/Plan Assessment/Plan 1. Acute appendicitis- resolving - tolerating regular diet - will continue on PO antibiotics for another 7 days - Gen surgery on board and appreciate recommendations - WBC normalized and remains afebrile - ID on board for antibiotic management 2. Diabetes mellitus - ISS and accuchecks - A1c noted 3. Dyslipidemia - continue statin 4. Hypertension - stable - hold BP meds for now 5. GERD - PPI 6. GIL on CKD- improving - Patient states she has had a history of renal issues in the past - Cr improving - Nephrology on board and appreciate recommendations. Will need to follow up in 2 weeks as outpatient 7. Disposition - Medically stable for discharge home Result Diagram: 12/17/18 0545 12/17/18 0546 Results 24hrs Laboratory Tests Test 12/16/18 12:23 12/16/18 13:55 12/16/18 17:21 12/16/18 20:08 Bedside Glucose 171 171 265 H White Blood Count 9.8 Red Blood Count 2.70 L Hemoglobin 8.3 L Hematocrit 25.2 L Mean Corpuscular 93.3 Volume Mean Corpuscular 30.7 Hemoglobin Mean Corpuscular 32.9 Hemoglobin Concent Red Cell 12.6 Distribution Width Platelet Count 296 Mean Platelet Volume 8.6 Immature 0.600 H Granulocytes % Neutrophils % 80.8 H Lymphocytes % 12.1 L Monocytes % 5.6 Eosinophils % 0.6 Basophils % 0.3 Nucleated Red Blood 0.0 Cells % Immature 0.060 H Granulocytes # Neutrophils # 7.9 H Lymphocytes # 1.2 Monocytes # 0.6 Eosinophils # 0.1 Basophils # 0.0 Nucleated Red Blood 0.0 Cells # Test 12/17/18 02:39 12/17/18 05:45 12/17/18 05:46 12/17/18 08:00 Bedside Glucose 259 H 210 White Blood Count 8.7 Red Blood Count 2.66 L Hemoglobin 8.2 L Hematocrit 24.8 L Mean Corpuscular 93.2 Volume Mean Corpuscular 30.8 Hemoglobin Mean Corpuscular 33.1 Hemoglobin Concent Red Cell 12.6 Distribution Width Platelet Count 305 Mean Platelet Volume 8.8 Immature 0.500 H Granulocytes % Neutrophils % 76.6 Lymphocytes % 14.4 L Monocytes % 6.9 Eosinophils % 1.3 Basophils % 0.3 Nucleated Red Blood 0.0 Cells % Immature 0.040 H Granulocytes # Neutrophils # 6.7 Lymphocytes # 1.3 Monocytes # 0.6 Eosinophils # 0.1 Basophils # 0.0 Nucleated Red Blood 0.0 Cells # Sodium Level 137 Potassium Level 3.8 Chloride Level 108 Carbon Dioxide Level 22 Anion Gap 7 Blood Urea Nitrogen 18 Creatinine 1.72 H Glucose Level 225 H Calcium Level 8.5 Phosphorus Level 3.3 Magnesium Level 1.5 L Albumin 2.8 L Subjective 24 Hr Interval Summary Free Text/Dictation Patient is tolerating regular diet and denies any abdominal pain or acute issues. No acute overnight events. Exam/Review of Systems Exam Vitals Vital Signs Date Temp Pulse Resp B/P (MAP) Pulse Ox O2 O2 Flow FiO2 Time Delivery Rate 12/17/18 98.6 81 18 125/72 97 Room Air 08:00 (89) Intake and Output 12/16/18 12/16/18 12/17/18 1414:59 22:59 06:59 IntakeIntake Total 500 ml 1450 ml 1200 ml BalanceBalance 500 ml 1450 ml 1200 ml Exam General: Patient is laying in bed and answers questions appropriately Neck: Supple, nontender, midline Respiratory: Clear to auscultation bilaterally. no wheezing or rhonchi Cardiovascular: regular rate and rhythm, no obvious murmurs Gastrointestinal: soft, nontender palpation, nondistended, bowel sounds heard. Ext: Moves all extremities spontaneously Skin: No new skin lesions Results Results 24hrs Laboratory Tests Test 12/16/18 12:23 12/16/18 13:55 12/16/18 17:21 12/16/18 20:08 Bedside Glucose 171 171 265 H White Blood Count 9.8 Red Blood Count 2.70 L Hemoglobin 8.3 L Hematocrit 25.2 L Mean Corpuscular 93.3 Volume Mean Corpuscular 30.7 Hemoglobin Mean Corpuscular 32.9 Hemoglobin Concent Red Cell 12.6 Distribution Width Platelet Count 296 Mean Platelet Volume 8.6 Immature 0.600 H Granulocytes % Neutrophils % 80.8 H Lymphocytes % 12.1 L Monocytes % 5.6 Eosinophils % 0.6 Basophils % 0.3 Nucleated Red Blood 0.0 Cells % Immature 0.060 H Granulocytes # Neutrophils # 7.9 H Lymphocytes # 1.2 Monocytes # 0.6 Eosinophils # 0.1 Basophils # 0.0 Nucleated Red Blood 0.0 Cells # Test 12/17/18 02:39 12/17/18 05:45 12/17/18 05:46 12/17/18 08:00 Bedside Glucose 259 H 210 White Blood Count 8.7 Red Blood Count 2.66 L Hemoglobin 8.2 L Hematocrit 24.8 L Mean Corpuscular 93.2 Volume Mean Corpuscular 30.8 Hemoglobin Mean Corpuscular 33.1 Hemoglobin Concent Red Cell 12.6 Distribution Width Platelet Count 305 Mean Platelet Volume 8.8 Immature 0.500 H Granulocytes % Neutrophils % 76.6 Lymphocytes % 14.4 L Monocytes % 6.9 Eosinophils % 1.3 Basophils % 0.3 Nucleated Red Blood 0.0 Cells % Immature 0.040 H Granulocytes # Neutrophils # 6.7 Lymphocytes # 1.3 Monocytes # 0.6 Eosinophils # 0.1 Basophils # 0.0 Nucleated Red Blood 0.0 Cells # Sodium Level 137 Potassium Level 3.8 Chloride Level 108 Carbon Dioxide Level 22 Anion Gap 7 Blood Urea Nitrogen 18 Creatinine 1.72 H Glucose Level 225 H Calcium Level 8.5 Phosphorus Level 3.3 Magnesium Level 1.5 L Albumin 2.8 L Medications Medication Current Medications IV Flush (NS 3 ml) 3 ml PER PROTOCOL IV ; Start 12/12/18 at 15:30 Ondansetron HCl (Zofran Inj) 4 mg Q6H PRN IV NAUSEA/VOMITING Last administered on 12/13/18at 14:31; Admin Dose 4 MG; Start 12/12/18 at 15:30 Acetaminophen/ Hydrocodone Bitart ([place] (5/325)) 1 tab Q6H PRN PO .PAIN 4-6 Last administered on 12/12/18at 21:47; Admin Dose 1 TAB; Start 12/12/18 at 15:30 Morphine Sulfate (morphine) 2 mg Q4H PRN IV .PAIN 7-10 Last administered on 12/14/18at 02:13; Admin Dose 2 MG; Start 12/12/18 at 15:30 Hydralazine HCl (Apresoline) 10 mg Q4H PRN IV sbp >160 Last administered on 12/16/18 20:18; Admin Dose 10 MG; Start 12/12/18 at 15:30 Miscellaneous Information 1 ea NOTE XX ; Start 12/12/18 at 17:00 Glucose (Glutose) 15 gm Q15M PRN PO DECREASED GLUCOSE; Start 12/12/18 at 17:00 Glucose (Glutose) 22.5 gm Q15M PRN PO DECREASED GLUCOSE; Start 12/12/18 at 17:00 Dextrose (D50w Syringe) 25 ml Q15M PRN IV DECREASED GLUCOSE; Start 12/12/18 at 17:00 Dextrose (D50w Syringe) 50 ml Q15M PRN IV DECREASED GLUCOSE; Start 12/12/18 at 17:00 Glucagon (Glucagen) 1 mg Q15M PRN IM DECREASED GLUCOSE; Start 12/12/18 at 17:00 Glucose (Glutose) 15 gm Q15M PRN BUCCAL DECREASED GLUCOSE; Start 12/12/18 at 17:00 Piperacillin Sod/ Tazobactam Sod 50 ml @ 200 mls/hr Q6 IVPB Last administered on 12/17/18at 05:40; Admin Dose 200 MLS/HR; Start 12/13/18 at 10:00 Pantoprazole (Protonix Tab) 40 mg DAILY@06 PO Last administered on 12/17/18at 05:40; Admin Dose 40 MG; Start 12/15/18 at 06:00 Atorvastatin Calcium (Lipitor) 80 mg QHS PO Last administered on 12/16/18at 20:10; Admin Dose 80 MG; Start 12/14/18 at 21:00 Cholecalciferol (Vitamin D) 1,000 unit DAILY PO Last administered on 12/17/18at 08:32; Admin Dose 1,000 UNIT; Start 12/15/18 at 09:00 Acetaminophen (Tylenol Tab) 650 mg Q6H PRN PO MILD PAIN(1-3)OR ELEVATED TEMP Last administered on 12/16/18at 22:27; Admin Dose 650 MG; Start 12/14/18 at 12:30 Insulin Glargine (Lantus) 20 units DAILY@2000 SC Last administered on 12/16/18at 20:12; Admin Dose 20 UNITS; Start 5/12/19 at 20:00 Sodium Chloride 1,000 ml @ 100 mls/hr Q10H IV Last administered on 12/17/18at 04:11; Admin Dose 100 MLS/HR; Start 12/15/18 at 02:30 Diagnostic Test (Pha) (Accu-Chek) 1 ea 02 XX ; Start 12/17/18 at 02:00 Insulin Aspart (Novolog Insulin Pen) NOVOLOG *MILD* ALGORITHM WITH MEALS BEDTIME SC Last administered on 12/17/18at 08:02; Admin Dose 2 UNIT; Start 12/16/18 at 21:00 Magnesium Sulfate 50 ml @ 25 mls/hr ONCE ONCE IVPB ; Start 12/17/18 at 10:00; Stop 12/17/18 at 11:59 CALEB VALENTIN MD December 17, 2018 09:48
[2018-12-17] MEDS ORDERED: CIPR500S2 PO (09:56)
[2018-12-17] MEDS ORDERED: METR500T PO (09:56)
[2018-12-17] MEDS ORDERED: INSU100I33 SC (09:56)
[2018-12-17] MEDS ORDERED: MAGNESIUM SULFATE 2 GM/50 ML 50 ML IVPB ONE (10:00)
--- NOTE | 2018-12-17 10:01 | PDOCDIS ---
Discharge Instructions DIAGNOSIS Discharge Diagnosis 1. Acute appendicitis- resolving 2. Diabetes mellitus 3. Dyslipidemia 4. Hypertension 5. GERD 6. Acute renal insufficiency- improving CONDITION [id number] Patient Condition: [id number] Stable HOME CARE INSTRUCTIONS: [id number] Diet Instructions: [id number] Low Fat /Cholesterol ACTIVITY: [id number] Activity Restrictions: [id number] No Restrictions FOLLOW UP/APPOINTMENTS Follow-up Plan 1. Follow up with your primary care physician in 1-2 weeks 2. Follow up with Dr. Aguila in 2 weeks to check your kidney function. Call his office to make an appointment after discharge 3. Take Ciprofloxacin 500mg twice a day and Flagyl three times a day with the next dose tomorrow morning, 12/18 4. Keep well hydrated 5 Your Losartan was held during your hospital stay since your blood pressure was normal. Please monitor your blood pressure and talk to your primary care physician about restarting your medication 6. You were given Basaglar 30 units during your hospital stay. Continue checking your sugars daily and discuss with your PCP about adjustments 7. If experiencing any concerning symptoms, please go to your closest emergency department REFERRALS Other Referrals Favian Aguila MD Specialty: Nephrology Office Address Favian Aguila M.D., [facility] [id number] [address] Office CALEB VALENTIN MD December 17, 2018 10:01
[2018-12-17] MEDS ORDERED: MAGNESIUM OXIDE 400 MG TAB PO ONE (11:00)
--- NOTE | 2018-12-17 15:18 | DS ---
Date/Time of Note Date/Time of Note DATE: 12/17/18 TIME: 15:18 Discharge Summary Admission/Discharge Info Admit Date/Time December 12, 2018 at 14:45 Discharge Date/Time December 17, 2018 at 11:40 Discharge Diagnosis 1. Acute appendicitis- resolving 2. Diabetes mellitus 3. Dyslipidemia 4. Hypertension 5. GERD 6. Acute renal insufficiency- improving Patient Condition: Stable Consults General Surgery- Dr. Collins Nephrology- Dr. Favian Aguila Infectious disease- Dr. Burger Hx of Present Illness Patient is a female with a past medical history significant for d iabetes mellitus, dyslipidemia, hypertension, acid reflux who presents to [facility] for abdominal pain. Patient has been suffering from intermittent abdominal pain for the past 2 days that has been waxing and waning. The pain progressively got worse and is now located primarily in the right lower quadrant. Patient states that she has had nausea however currently the nausea has subsided and her only current complaint aside from the abdominal pain is a mild to moderate headache. Patient denies chest pain, shortness of breath, dizziness, neck pain, diarrhea, constipation, leg pain. Hospital Course Patient was admitted for surgical evaluation after findings of acute appendicitis on CT A/P as well as treatment of sepsis. Surgery was consulted and patient opted for conservative treatment. She was started on IV antibiotics and ID was consulted for antibiotic recommendations. Patients pain was improving and diet was slowly advanced based on tolerance. She was also found with acute renal failure and Nephrology was consulted. Losartan was held and patient was started on fluids. Renal function improved during course of hospitalization and she was cleared for discharge with outpatient Nephrology follow up. Patient was able to tolerate regular diet without any GI symptoms and did not require pain medications. Patients WBC normalized and remained afebrile for greater than 24 hours. Patients presenting symptoms resolved and patient was discharged home in stable condition. Home Meds Active Scripts Metronidazole* (Flagyl*) 500 Mg Tablet, 500 MG PO Q8 for 7 Days, #21 TAB Prov:CALEB VALENTIN MD 12/17/18 Ciprofloxacin (Ciprofloxacin) 500 Mg/5 Ml Nelda.mc.rec, 500 MG PO BID for 7 Days, #14 TAB Prov:CALEB VALENTIN MD 12/17/18 Insulin Glargine,Hum.rec.anlog (Basaglar Kwikpen U-100) 100 Unit/1 Ml Insuln.pen, 30 UNIT SC QHS for 30 Days, #10 EA Prov:CALEB VALENTIN MD 12/17/18 Reported Medications Ranitidine Hcl* (Ranitidine Hcl*) 150 Mg Tablet, 150 MG PO Q12, #60 TAB 12/12/18 Cholecalciferol* (Vitamin D3*) 1,000 Unit Tablet, 1000 UNIT PO DAILY, TAB 12/12/18 Atorvastatin* (Atorvastatin*) 80 Mg Tablet, 80 MG PO QHS, #30 TAB 12/12/18 Discontinued Reported Medications Losartan Potassium* (Losartan Potassium*) 100 Mg Tablet, 100 MG PO DAILY, TAB 12/12/18 Metformin Hcl* (Metformin Hcl*) 1,000 Mg Tablet, 1000 MG PO WITH BREAKFAST, #30 TAB 11/14/15 Valsartan* (Diovan*) 320 Mg Tablet, 320 MG PO DAILY, TAB 11/14/15 Insulin Glargine* (Lantus*) 100 Unit/Ml Soln, 50 UNIT SC QHS, #1 VIAL 11/14/15 Follow-up Plan 1. Follow up with your primary care physician in 1-2 weeks 2. Follow up with Dr. Aguila in 2 weeks to check your kidney function. Call his office to make an appointment after discharge 3. Take Ciprofloxacin 500mg twice a day and Flagyl three times a day with the next dose tomorrow morning, 12/18 4. Keep well hydrated 5 Your Losartan was held during your hospital stay since your blood pressure was normal. Please monitor your blood pressure and talk to your primary care physician about restarting your medication 6. You were given Basaglar 30 units during your hospital stay. Continue checking your sugars daily and discuss with your PCP about adjustments 7. If experiencing any concerning symptoms, please go to your closest emergency department Primary Care Provider Nikolai Forrester MD Time spent on discharge: > 30 minutes Pending Labs Laboratory Tests Test 12/16/18 17:21 12/16/18 20:08 12/17/18 02:39 12/17/18 05:45 Bedside 171 265 259 Glucose mg/dL (70-220) mg/dL (70-220) mg/dL (70-220) White Blood 8.7 Count 10^3/ul (4.8-1 0.8) Red Blood 2.66 Count 10^6/ul (4.20- 5.40) Hemoglobin 8.2 g/dl (12.0-16. 0) Hematocrit 24.8 % (37.0-47.0) Mean 93.2 Corpuscular fl (82.0-101.0 Volume ) Mean 30.8 Corpuscular pg (29.0-33.0) Hemoglobin Mean 33.1 Corpuscular g/dl (32.0-37. Hemoglobin Conc 0) ent Red Cell 12.6 Distribution % (11.5-14.5) Width Platelet Count 305 10^3/UL (140-4 15) Mean Platelet 8.8 Volume fl (7.4-10.4) Immature 0.500 Granulocytes % % (0.001-0.429 ) Neutrophils % 76.6 % (39.0-77.0) Lymphocytes % 14.4 % (15.0-51.0) Monocytes % 6.9 % (0.0-11.0) Eosinophils % 1.3 % (0.0-7.0) Basophils % 0.3 % (0.0-2.0) Nucleated Red 0.0 Blood Cells % /100WBC (0.0-0 .0) Immature 0.040 Granulocytes # 10^3/ul (0.0-0 .031) Neutrophils # 6.7 10^3/ul (1.6-7 .5) Lymphocytes # 1.3 10^3/ul (0.8-2 .9) Monocytes # 0.6 10^3/ul (0.3-0 .9) Eosinophils # 0.1 10^3/ul (0.0-0 .5) Basophils # 0.0 10^3/ul (0.0-0 .1) Nucleated Red 0.0 Blood Cells # 10^3/ul (0.0-0 .0) Test 12/17/18 05:46 12/17/18 08:00 Sodium Level 137 mmol/L (135-144 ) Potassium 3.8 Level mmol/L (3.5-5.1 ) Chloride Level 108 mmol/L (97-110) Carbon Dioxide 22 Level mmol/L (21-31) Anion Gap 7 (5-13) Blood Urea 18 mg/dl (7-20) Nitrogen Creatinine 1.72 mg/dl (0.44-1.0 0) Glucose Level 225 mg/dl (70-220) Calcium Level 8.5 mg/dl (8.4-10.2 ) Phosphorus 3.3 Level mg/dl (2.5-4.9) Magnesium 1.5 Level mg/dl (1.7-2.5) Albumin 2.8 g/dl (3.3-4.9) Bedside 210 Glucose mg/dL (70-220) CALEB VALENTIN MD December 17, 2018 15:18
--- NOTE | 2018-12-18 02:57 | PN ---
Date/Time of Note Date/Time of Note DATE: 12/15/18 TIME: 22:54 Assessment/Plan Lines/Catheters IV Catheter Type (from [facility]): Peripheral IV Tavares in Place (from [facility]): No Assessment/Plan Chief Complaint/Hosp Course 1. Acute appendicitis: CT: subcecal appendix that is distended up to 1.1 cm in diameter, moderate periappendiceal fat stranding without appendicolith, abscess or free air: had lengthy conversation with patient and daughter regarding surgical options. At this point, she has decided on conservative management without surgical intervention fever and leukocytosis resolved -Continue IV abx> per ID -close monitoring> if unimproved or worsens may require surgical intervention -pain mgt -ivf -ok for diet 2. Abdominal pain: -pain mgt -as above 3. Leukocytosis: Resolved -as above -trend 4. Normocytic normochromic anemia: -monitor -transfuse as needed 5.Hyponatremia: Resolved Judicious fluid correction 6. GIL: Improved -Limit nephrotoxic meds -Renally dose meds -Per renal 7. Minimally elevated alkaline phosphatase: CT: Liver, gallbladder and bile ducts unremarkable -Trend 8. Severe obesity BMI: 37 -diet and exercise optimization -encourage weight loss 9. Umbilical and inguinal hernias -eventual repair Thank you Late entry 12/15 Subjective 24 Hr Interval Summary Abdominal pain almost fully resolved. + Flatus. Tolerating clears. WBC normalized. No fevers, chills, sob, congested cough, cp, palpitations, tobar, dizziness, nausea, vomiting, diarrhea, dysuria. Exam/Review of Systems Vital Signs Vitals Vital Signs Date Temp Pulse Resp B/P (MAP) Pulse Ox O2 O2 Flow FiO2 Time Delivery Rate 12/17/18 98.6 81 18 125/72 97 Room Air 08:00 (89) Intake and Output 12/17/18 12/17/18 12/18/18 1515:00 23:00 07:00 IntakeIntake Total 600 ml BalanceBalance 600 ml Exam Free Text/Dictation Constitutional: alert, oriented Psych: anxiety (min) Eyes: nl conjunctiva, nl lids ENMT: nl external ears & nose, nl lips & teeth, mucosa pink and moist Neck: supple, non-tender; No jvd Respiratory: normal air movement; No congested cough Cardiovascular: regular rate and rhythm; No edema Gastrointestinal: soft, tender (diffuse, most tender RLQ) Genitourinary - Female: nl external genitalia Musculoskeletal: nl extremities to inspection, nl gait and stance Extremities: normal pulses Neurological: nl mental status, nl speech, nl strength Skin: No rash or lesions Lymph: nl lymph nodes Results Result Diagram: 12/17/18 0545 12/17/18 0546 BRI SALCEDO MD December 18, 2018 02:57
--- NOTE | 2018-12-18 02:59 | PN ---
Date/Time of Note Date/Time of Note DATE: 12/17/18 TIME: 02:57 Assessment/Plan Lines/Catheters IV C[facility]ter Type (from [facility]): Peripheral IV Tavares in Place (from [facility]): No Assessment/Plan Chief Complaint/Hosp Course 1. Acute appendicitis: CT: subcecal appendix that is distended up to 1.1 cm in diameter, moderate periappendiceal fat stranding without appendicolith, abscess or free air: had lengthy conversation with patient and daughter regarding surgical options. At this point, she has decided on conservative management without surgical intervention fever and leukocytosis resolved -abx -dc planning 2. Abdominal pain: improved 3. Leukocytosis: Resolved -as above -trend 4. Normocytic normochromic anemia: -monitor -transfuse as needed 5 GIL: Improved -Limit nephrotoxic meds -Renally dose meds -Per renal 6. Minimally elevated alkaline phosphatase: CT: Liver, gallbladder and bile ducts unremarkable -Trend 7. Severe obesity BMI: 37 -diet and exercise optimization -encourage weight loss 8. Umbilical and inguinal hernias -eventual repair Thank you Late entry 12/17 Subjective 24 Hr Interval Summary Feels much improved. Abdominal pain almost fully resolved. + Flatus. Tolerating clears. WBC normalized. No fevers, chills, sob, congested cough, cp, palpitations, tobar, dizziness, nausea, vomiting, diarrhea, dysuria. Exam/Review of Systems Vital Signs Vitals Vital Signs Date Temp Pulse Resp B/P (MAP) Pulse Ox O2 O2 Flow FiO2 Time Delivery Rate 12/17/18 98.6 81 18 125/72 97 Room Air 08:00 (89) Intake and Output 12/17/18 12/17/18 12/18/18 1515:00 23:00 07:00 IntakeIntake Total 600 ml BalanceBalance 600 ml Exam Free Text/Dictation Constitutional: alert, oriented Psych: anxiety (min) Eyes: nl conjunctiva, nl lids ENMT: nl external ears & nose, nl lips & teeth, mucosa pink and moist Neck: supple, non-tender; No jvd Respiratory: normal air movement; No congested cough Cardiovascular: regular rate and rhythm; No edema Gastrointestinal: soft, NT Genitourinary - Female: nl external genitalia Musculoskeletal: nl extremities to inspection, nl gait and stance Extremities: normal pulses Neurological: nl mental status, nl speech, nl strength Skin: No rash or lesions Lymph: nl lymph nodes Results Result Diagram: 12/17/18 0545 12/17/18 0546 BRI SALCEDO MD December 18, 2018 02:59
== END 2018-12-17 11:40 | disposition home or self-care (01) | DRG 872 ==
LOC: E/R 13:42 → PP2 14:45 → SUATTDRO 15:06 → PP2 15:55
PROVIDERS: ADMIT Internal Medicine; ATTEND Internal Medicine
DX: A41.9 Sepsis, unspecified organism (principal); K35.30 Acute appendicitis with localized peritonitis, without perforation or gangrene; N17.9 Acute kidney failure, unspecified; E87.1 Hypo-osmolality and hyponatremia; K40.90 Unilateral inguinal hernia, without obstruction or gangrene, not specified as recurrent; K42.9 Umbilical hernia without obstruction or gangrene; E66.01 Morbid (severe) obesity due to excess calories; Z68.36 Body mass index [BMI] 36.0-36.9, adult; E78.5 Hyperlipidemia, unspecified; K21.9 Gastro-esophageal reflux disease without esophagitis; E11.22 Type 2 diabetes mellitus with diabetic chronic kidney disease; I12.9 Hypertensive chronic kidney disease with stage 1 through stage 4 chronic kidney disease, or unspecified chronic kidney disease; N18.3 Chronic kidney disease, stage 3 (moderate); D64.9 Anemia, unspecified
CPT/HCPCS: 71045; 74176; 80048; 80053; 80061; 80069; 81001; 82962; 83036; 83605; 83690; 83735; 84100; 84443; 85025; 85610; 85730; 96374; 96375; J0131; J0360; J1815; J1885; J2270; J2405; J2543; J3475; J7030; J7042; J7120